=== PATIENT | male | born 1980 | race Two or more races ===

== ENCOUNTER 2017-01-30 20:22 | Emergency (ER) | payer BC ==
[2017-01-30] MEDS ORDERED: Ketorolac 60 MG/2 ML SDV IM ONE (20:55)
--- NOTE | 2017-01-30 20:55 | EDM.PDOC ---
ED HPI GENERAL MEDICAL PROBLEM - General Chief Complaint: Back Pain or Injury Stated Complaint: LT RIBCAGE PAIN Time Seen by Provider: 01/30/17 20:47 - History of Present Illness INITIAL COMMENTS - FREE TEXT/NARRATIVE: HISTORY AND PHYSICAL: History of present illness: The patient is a 36-year-old male with no stated medical problems that presents with complaints of left anterior rib pain that he's had for one week after he fell off a roof and landed on the side. With the fall he did not pass out or black out and has no head neck or back pain and no abdominal complaints or extremity complaints. He has had persistent pain at his left ribs since the fall but he has had to continue to work. He says that the pain worsens when he moves certain ways and he has been using [id number] Advil for the discomfort. He doesn't feel short of breath and has had an occassional cough and some subjective fever; he does have some intermittent nasal bleeding but he does work outside. He says that sometimes with his cough he'll get some clear phlegm and some streaks of blood but we are unsure of this is from his coughing or his nasal bleeding. He doesn't have copious nasal bleeding is scant that he has noticed. He has had no issues with eating and has been tolerating food without difficulty. Review of systems: As per history of present illness and below otherwise all systems reviewed and negative. Past medical history: As per history of present illness and as reviewed below otherwise noncontributory. Surgical history: As per history of present illness and as reviewed below otherwise noncontributory. Social history: No reported history of drug or alcohol abuse. Family history: As per history of present illness and as reviewed below otherwise noncontributory. Physical exam: General: Well-developed well-nourished man who is thin and nontoxic and moves easily in the ED. Vital signs have been noted by me. HEENT: Atraumatic, normocephalic, pupils reactive, negative for conjunctival pallor or scleral icterus, mucous membranes moist, throat clear, neck supple, nontender, trachea midline. There are no midline step-offs or defects of the cervical spine. Turbinates are boggy bilaterally oriented mucosa Lungs: Clear to auscultation, breath sounds equal bilaterally, chest wall at anterior left ribs with tenderness that is reproducible but no crepitus deformities ecchymosis or swelling. There is no work or breathing no stridor or wheezing is appreciated Heart: S1S2, regular, negative for clicks, rubs, or JVD. Abdomen: Soft, nondistended, nontender--specifically there is no left upper abdominal tenderness or fullness no rebound guarding . Negative for masses or hepatosplenomegaly. Negative for costovertebral tenderness. Pelvis: Stable nontender. No lateral hip tenderness Genitourinary: Deferred. Rectal: Deferred. Extremities: Atraumatic, negative for cords or calf pain. Neurovascular unremarkable. Full range of motion without defects or deficits Neuro: Awake, alert, oriented. Cranial nerves II through XII unremarkable. Cerebellum unremarkable. Motor and sensory unremarkable throughout. Exam nonfocal. Back: There are no midline step-offs tenderness or defects of the thoracic or lumbar spine and no posterior rib tenderness Diagnostics: Left rib x-rays with chest Therapeutics: Toradol Patient is aware of testing results and do to the cough and the runny nose we will go ahead and treat him with a Z-Tai. Advised him to continue to use Advil or Tylenol for pain and to followup in our clinic. Impression: Left chest wall pain/left rib contusion with history of blunt trauma, bronchitis Definitive disposition and diagnosis as appropriate pending reevaluation and review of above. Treatments CITRIX LEAD: Reports: NSAIDS Other Treatments CIT[employer]X LEAD: advil Left Chest Pain Score (Numeric/FACES): 9 - Related Data Allergies Allergy/AdvReac Type Severity Reaction Status Date / Time No Known Allergies Allergy Verified 03/22/15 13:25 Home Meds: Home Meds . [No Known Home Meds] 01/30/17 [History] Past Medical History - Past Health History Medical/Surgical History: Denies Medical/Surgical History Social & Family History - Tobacco Use Smoking Status *Q: Never Smoker - Alcohol Use Days Per Week of Alcohol Use: 3 Number of Drinks Per Day: 5 Total Drinks Per Week: 15 - Recreational Drug Use Recreational Drug Use: No ED ROS GENERAL - Review of Systems Review Of Systems: ROS reveals no pertinent complaints other than HPI. ED EXAM, GENERAL - Physical Exam Exam: See Below (See dictation) Course - Vital Signs Last Recorded V/S: Last Vital Signs Temp 36.9 C 01/30/17 20:39 Pulse 75 04/10/17 20:39 Resp 18 01/30/17 20:39 BP 127/80 01/30/17 20:39 Pulse Ox 97 01/30/17 20:39 - Orders/Labs/Meds Orders: Active Orders 24 hr Category Date Time Status Ribs 2V w Chest Lt [CR] Stat Exams 01/30/17 20:52 Taken Meds: Medications Discontinued Medications Generic Name Dose Route Start Last Admin Trade Name Freq PRN Reason Stop Dose Admin Ketorolac Tromethamine 60 mg 01/30/17 20:55 01/30/17 21:09 Toradol IM 01/30/17 20:56 60 mg ONETIME ONE Administration Departure - Departure Time of Disposition: 21:51 Disposition: Home, Self-Care 01 Condition: good Clinical Impression: Bronchitis Rib contusion Qualifiers: Encounter type: initial encounter Laterality: left Qualified Code(s): S20.212A - Contusion of left front wall of thorax, initial encounter Forms: ED Department Discharge Additional Instructions: The following information is given to patients seen in the emergency department who are being discharged to home. This information is to outline your options for follow-up care. We provide all patients seen in our emergency department with a follow-up referral. The need for follow-up, as well as the timing and circumstances, are variable depending upon the specifics of your emergency department visit. If you don't have a primary care physician on staff, we will provide you with a referral. We always advise you to contact your personal physician following an emergency department visit to inform them of the circumstance of the visit and for follow-up with them and/or the need for any referrals to a consulting specialist. The emergency department will also refer you to a specialist when appropriate. This referral assures that you have the opportunity for followup care with a specialist. All of these measure are taken in an effort to provide you with optimal care, which includes your followup. Under all circumstances we always encourage you to contact your private physician who remains a resource for coordinating your care. When calling for followup care, please make the office aware that this follow-up is from your recent emergency room visit. If for any reason you are refused follow-up, please contact the [facility] emergency department at and ask to speak to the emergency department charge nurse. [facility] [address] [place] [address] Continued use [id number]-mexblat Advil/Tylenol for discomfort and place ice after activities to help with pain. Please take antibiotics until they are finished for your other symptoms and please connect with one of our clinic physicians for further care and evaluation. Return to ER as needed and as discussed - My Orders Last 24 Hours: My Active Orders 01/30/17 20:52 Ribs 2V w Chest Lt [CR] Stat - Assessment/Plan Last 24 Hours: My Active Orders 01/30/17 20:52 Ribs 2V w Chest Lt [CR] Stat
[2017-01-30 22:31] VITALS: BP 123/73
--- NOTE | 2017-01-31 14:22 | CR ---
EXAM DATE: 01/30/17 PATIENT'S AGE: 36 Patient: MELVIN TAVARES Facility: [place], [place] Site . Site : 1980 Study: XRay Chest RIBS [id number]/10/2017 9:36:55 PM Ordering Physician: Leatha Lobo Final Report: INDICATION: Trauma. Patient fell. COMPARISON: none TECHNIQUE: PA chest and left ribs. FINDINGS: The lungs are clear. There is no evidence of pulmonary contusion, pneumothorax or pleural effusion. The heart and pulmonary vessels are of normal size. Oblique detail views of the ribs demonstrate no evidence of fracture or intrinsic bone lesion. There is no evidence of pleural hematoma. IMPRESSION: IMPRESSION:Negative chest and left ribs. Dictated by Fredi Bolden MD @ Jan 30 2017 9:39PM (Electronic Signature) Report Signed by Proxy and Original Signed Document filed in the Medical Record. MTDD
== END 2017-01-30 22:15 | disposition home or self-care (01) ==
LOC: MW.ED 20:22
DX: S20.212A Contusion of left front wall of thorax, initial encounter (principal); J40 Bronchitis, not specified as acute or chronic; W13.2XXA Fall from, out of or through roof, initial encounter
CPT/HCPCS: 71101; 96372; 99283; J1885

== ENCOUNTER 2017-08-25 19:53 | Emergency (ER) | payer OTHER ==
--- NOTE | 2017-08-25 20:34 | EDM.PDOC ---
ED HPI GENERAL MEDICAL PROBLEM - General Chief Complaint: Upper Extremity Injury/Pain Stated Complaint: PAIN /SWELLING LT ARM Time Seen by Provider: 08/25/17 20:26 - History of Present Illness INITIAL COMMENTS - FREE TEXT/NARRATIVE: HISTORY AND PHYSICAL: History of present illness: Patient 36-year-old male presents with a concern of left wrist pain this was an injury for 4 months prior he has had an x-ray prior to this that he reports to have been negative he has continued pain and swelling this is intermittent he denies new trauma or other concern Review of systems: As per history of present illness and below otherwise all systems reviewed and negative. Past medical history: As per history of present illness and as reviewed below otherwise noncontributory. Surgical history: As per history of present illness and as reviewed below otherwise noncontributory. Social history: No reported history of drug or alcohol abuse. Family history: As per history of present illness and as reviewed below otherwise noncontributory. Physical exam: HEENT: Atraumatic, normocephalic, pupils reactive, negative for conjunctival pallor or scleral icterus, mucous membranes moist, throat clear, neck supple, nontender, trachea midline. Lungs: Clear to auscultation, breath sounds equal bilaterally, chest nontender. Heart: S1S2, regular, negative for clicks, rubs, or JVD. Abdomen: Soft, nondistended, nontender. Negative for masses or hepatosplenomegaly. Negative for costovertebral tenderness. Pelvis: Stable nontender. Genitourinary: Deferred. Rectal: Deferred. Extremities: Moderate swelling and tenderness over the dorsal aspect of his left wrist is no point tenderness no crepitation CMS neurovascular is unremarkable Neuro: Awake, alert, oriented. Cranial nerves II through XII unremarkable. Cerebellum unremarkable. Motor and sensory unremarkable throughout. Exam nonfocal. Diagnostics: CBC uric acid ESR CRP x-ray left wrist Therapeutics: Velcro splint Impression: #1 chronic left wrist pain etiology to be determined Definitive disposition and diagnosis as appropriate pending reevaluation and review of above. Left Hand Pain Score (Numeric/FACES): 10 - Related Data Allergies Allergy/AdvReac Type Severity Reaction Status Date / Time No Known Allergies Allergy Verified 08/25/17 20:26 Home Meds: Home Meds . [No Known Home Meds] 01/30/17 [History] Past Medical History - Past Health History Medical/Surgical History: Denies Medical/Surgical History - Infectious Disease History Infectious Disease History: Reports: Chicken Pox Social & Family History - Family History Family Medical History: Noncontributory - Tobacco Use Smoking Status *Q: Never Smoker Second Hand Smoke Exposure: No - Caffeine Use Caffeine Use: Reports: Soda - Alcohol Use Days Per Week of Alcohol Use: 3 Number of Drinks Per Day: 5 Total Drinks Per Week: 15 - Recreational Drug Use Recreational Drug Use: No Review of Systems - Review of Systems Review Of Systems: ROS reveals no pertinent complaints other than HPI. ED EXAM, GENERAL - Physical Exam Exam: See Below (see dictated) Course - Vital Signs Last Recorded V/S: Last Vital Signs Temp 36.4 C 08/25/17 20:27 Pulse 70 08/25/17 20:27 Resp 18 08/25/17 20:27 BP 125/85 08/25/17 20:27 Pulse Ox 95 08/25/17 20:27 - Orders/Labs/Meds Orders: Active Orders 24 hr Category Date Time Status Wrist 2V Lt [CR] Stat Exams 08/25/17 20:29 Ordered Departure - Departure Time of Disposition: 20:33 Disposition: Home, Self-Care 01 Condition: Good Clinical Impression: Chronic wrist pain - Discharge Information Referrals: PCP,None [Primary Care Provider] - Additional Instructions: The following information is given to patients seen in the emergency department who are being discharged to home. This information is to outline your options for follow-up care. We provide all patients seen in our emergency department with a follow-up referral. The need for follow-up, as well as the timing and circumstances, are variable depending upon the specifics of your emergency department visit. If you don't have a primary care physician on staff, we will provide you with a referral. We always advise you to contact your personal physician following an emergency department visit to inform them of the circumstance of the visit and for follow-up with them and/or the need for any referrals to a consulting specialist. The emergency department will also refer you to a specialist when appropriate. This referral assures that you have the opportunity for followup care with a specialist. All of these measure are taken in an effort to provide you with optimal care, which includes your followup. Under all circumstances we always encourage you to contact your private physician who remains a resource for coordinating your care. When calling for followup care, please make the office aware that this follow-up is from your recent emergency room visit. If for any reason you are refused follow-up, please contact the [facility] emergency department at and asked to speak to the emergency department charge nurse. [facility] [address], [address] [place] [address] Follow-up orthopedic clinic called schedule routine appointment Velcro splint as discussed return as needed as discussed Motrin/Tylenol as directed - My Orders Last 24 Hours: My Active Orders 08/25/17 20:29 Wrist 2V Lt [CR] Stat - Assessment/Plan Last 24 Hours: My Active Orders 08/25/17 20:29 Wrist 2V Lt [CR] Stat
[2017-08-25 21:19] LABS: CHLORIDE,CL 112 mmol/L (98-110); SODIUM,NA 144 mmol/L (136-146)
[2017-08-25 22:28] VITALS: BP 113/71
--- NOTE | 2017-08-26 14:24 | CR ---
EXAM DATE: 08/25/17 PATIENT'S AGE: 36 Patient: MELVIN TAVARES Facility: [place], [place] Site . Site : 1980 Study: XRay Extremity wrist [id number]/3/2017 9:01:39 PM Ordering Physician: Maeve Rai Final Report: INDICATION: Hyperextension injury 4 months ago, still having pain. TECHNIQUE: Left wrist, two views COMPARISON: None FINDINGS: Bones: There is normal alignment of the osseous structures with preservation of the carpal rows. No acute fractures or aggressive bone lesions are identified. Joint spaces: The radiocarpal, carpal, and carpometacarpal joints are unremarkable in appearance. Soft tissues: Unremarkable. No radiopaque foreign bodies are noted. IMPRESSION: 1. Negative left wrist series. Dictated by Fab Myers MD @ 08/25/2017 9:17:13 PM Dictated by: Fab Myers MD @ 08/25/2017 21:17:21 (Electronic Signature) Report Signed by Proxy. [facility]
== END 2017-08-25 22:28 | disposition home or self-care (01) ==
LOC: MW.ED 19:53
DX: M25.532 Pain in left wrist (principal); G89.29 Other chronic pain
CPT/HCPCS: 36415; 73100; 80053; 84550; 85025; 85652; 86140; 99283; L3908

== ENCOUNTER 2020-05-25 08:55 | Observation (INO) | payer BC, OTHER ==
[2020-05-25] MEDS ORDERED: Sodium Chloride 0.9% 2.5 ML Syringe FLUSH PRN (09:20)
[2020-05-25] MEDS ORDERED: Sodium Chloride 0.9% 10 ML SDV IV PRN (09:20)
[2020-05-25] MEDS ORDERED: Sodium Chloride 0.9% 10 ML Syringe FLUSH PRN (09:20)
--- NOTE | 2020-05-25 09:36 | CT ---
Addendum: Voice recognition error is identified describing the date of previous head CT exam. Date of previous head CT study is 03/22/15. --- Addendum1 above dictated on [05/25/2020 08:46] by [Lawrence Nino Hilton J.] --- --- Addendum1 above signed on [05/25/2020 08:47] by [Lawrence Nino Hilton J.] --- --- Original report below dictated on [05/25/2020 08:33] by [Lawrence Nino Hilton J.] --- --- Original report below signed on [05/25/2020 08:33] by [Lawrence Nino Hilton J.] --- Head CT Technique: Multiple axial sections through the brain were obtained. Intravenous contrast was not utilized. Comparison: Prior head CT study of 03/22/50. Findings: Ventricles along with basal cisterns and sulci over the convexities are within normal limits for the patient's age. No abnormal parenchymal densities are seen. No evidence of intracranial hemorrhage. No midline shift or mass-effect is seen. Bone window settings were reviewed. Visualized paranasal sinuses and mastoid sinuses show nothing acute. No acute calvarial finding is seen. Impression: 1. Nothing acute is identified on noncontrast head CT study. 2. No change from previous study is seen. Diagnostic code #1 This report was dictated in MDT --- Addendum1 signed ---
--- NOTE | 2020-05-25 09:47 | CR ---
Chest: Portable view of the chest was obtained. Comparison: No prior chest imaging is available. Heart size and mediastinum are normal. Lungs are clear with no acute parenchymal change. Bony structures are unremarkable. Impression: 1. Nothing acute is seen on portable chest x-ray. Diagnostic code #1 This report was dictated in MDT
[2020-05-25 09:51] LABS: BLOOD UREA NITROGEN,BUN 16 mg/dL (7.0-18.0); CARBON DIOXIDE,CO2 26.5 mmol/L (21.0-32.0); CHLORIDE,CL 105 mmol/L (98-107); GLUCOSE RANDOM 92 mg/dL (74-106); POTASSIUM,K 3.6 mmol/L (3.5-5.1); SODIUM,NA 141 mmol/L (136-148)
[2020-05-25] MEDS ORDERED: Aspirin 81 MG Tab.Chew PO ONE (10:37)
--- NOTE | 2020-05-25 10:44 | EDM.PDOC ---
ED HPI GENERAL MEDICAL PROBLEM - General Chief Complaint: Neuro Symptoms/Deficits Stated Complaint: CHEST PAIN, NUMBNESS LT SIDE Time Seen by Provider: 05/25/20 09:19 - History of Present Illness INITIAL COMMENTS - FREE TEXT/NARRATIVE: History of present illness: Patient presents with left-sided weakness and numbness. 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 Patient states that on Monday he had some numbness and weakness in the left side that lasted several hours and it went away Monday he had no symptoms Monday he had some symptoms that lasted several hours and went away and this morning he had symptoms since 3 AM he says he feels dizzy which is difficult to determine exactly what the quality of the dizziness is and he says his mouth feels strange when he tries to speak it is numb on the left side and his entire left upper and lower extremities are numb and feel slightly weak. He denies any prior strokes no other medical problems no medications no head injuries he has not had any difficulty speaking the episodes seem to come and go and he has never had anything like this happen to him before. There is been no other symptoms of cough congestion fever no headache no head injury no chest pain no trouble breathing. Review of systems: As per history of present illness and below otherwise all systems reviewed and negative. Past medical history: As per history of present illness and as reviewed below otherwise noncontributory. Surgical history: As per history of present illness and as reviewed below otherwise noncontributory. Social history: No reported history of drug or alcohol abuse. Family history: As per history of present illness and as reviewed below otherwise noncontributory. Physical exam: HEENT: Atraumatic, normocephalic, pupils reactive, negative for conjunctival pallor or scleral icterus, mucous membranes moist, throat clear, neck supple, nontender, trachea midline. Lungs: Clear to auscultation, breath sounds equal bilaterally, chest nontender. Heart: S1S2, regular, negative for clicks, rubs, or JVD. Abdomen: Soft, nondistended, nontender. Negative for masses or hepatosplenomegaly. Negative for costovertebral tenderness. Pelvis: Stable nontender. Genitourinary: Deferred. Rectal: Deferred. Extremities: Atraumatic, negative for cords or calf pain. Neurovascular unremarkable. Neuro: Awake, alert, oriented. Cranial nerves II through XII unremarkable. Cerebellum unremarkable. The chief contract officer strength on left side is 4 out of 5 right side 5 out of 5 throughout. There is a very mild pronator drift on the left in the patient states he is having trouble with his speech although due to the language barrier I am not noticing any specific slurring. Diagnostics: [] Therapeutics: [] Impression: Mild CVA with symptoms greater than 6 hours. Patient will be evaluated and admitted he is not going to be a TPA candidate due to the onset of symptoms [] Plan: [] Definitive disposition and diagnosis as appropriate pending reevaluation and review of above. - Related Data Allergies Allergy/AdvReac Type Severity Reaction Status Date / Time No Known Allergies Allergy Verified 05/25/20 09:25 Home Meds: Home Meds . [No Known Home Meds] 01/30/17 [History] Past Medical History - Past Health History Medical/Surgical History: Denies Medical/Surgical History - Infectious Disease History Infectious Disease History: Reports: Chicken Pox Social & Family History - Family History Family Medical History: Noncontributory - Tobacco Use Smoking Status *Q: Never Smoker - Caffeine Use Caffeine Use: Reports: Soda - Recreational Drug Use Recreational Drug Use: No ED ROS GENERAL - Review of Systems Review Of Systems: See Below ED EXAM, GENERAL - Physical Exam Exam: See Below EKG INTERPRETATION EKG Interpretation Comments: EKG is normal sinus rhythm with a rate of [address]-T changes no casi ischemia read and interpreted by me Course - Vital Signs Text/Narrative:: One-view portable chest read interpreted by me no acute cardiopulmonary pathology is evident CT brain read by radiology is unremarkable. I discussed case Dr. Lyle at 10:40 AM he will accept the patient to [facility] for CVA. Last Recorded V/S: Last Vital Signs Temp 35.3 C L 05/25/20 09:00 Pulse 58 L 05/25/20 09:00 Resp 16 05/25/20 09:00 BP 135/77 05/25/20 09:00 Pulse Ox 99 05/25/20 09:00 - Orders/Labs/Meds Orders: Active Orders 24 hr Category Date Time Status Assess Neurological Status [RC] ASDIRECTED Care 05/25/20 09:20 Active Bedrest [RC] ASDIRECTED Care 05/25/20 09:20 Active Cardiac Monitoring [RC] . DIRECTED Care 05/25/20 09:20 Active EKG Documentation Completion [RC] STAT Care 05/25/20 09:20 Active Height and Weight [] UPON Care 05/25/20 09:20 Active Initiate Acute Stroke Protocol [] STAT Care 05/25/20 09:20 Active NIH Stroke Scale [RC] ASDIRECTED Care 05/25/20 09:20 Active Nursing Bedside Swallow Screen [] ASDIRECTED Care 05/25/20 09:20 Active Oxygen Therapy [RC] ASDIRECTED Care 05/25/20 09:20 Active Stroke Education, General [] Click to Edit Care 05/25/20 09:20 Active Vital Signs [] Q15M Care 05/25/20 09:20 Active Sodium Chloride 0.9% [Normal Saline] Med 05/25/20 09:20 Active 10 ml IV ASDIRECTED PRN Sodium Chloride 0.9% [Saline Flush] Med 05/25/20 09:20 Active 10 ml FLUSH ASDIRECTED PRN Sodium Chloride 0.9% [Saline Flush] Med 05/25/20 09:20 Active 2.5 ml FLUSH ASDIRECTED PRN Peripheral IV Insertion Adult [OM.PC] Stat Oth 05/25/20 09:20 Ordered Peripheral IV Insertion Adult [OM.PC] Stat Oth 05/25/20 09:20 Ordered Resuscitation Status Stat Resus Stat 05/25/20 09:20 Ordered Medication Orders Sodium Chloride (Saline Flush) 10 ml FLUSH ASDIRECTED PRN PRN Reason: Keep Vein Open Sodium Chloride (Saline Flush) 2.5 ml FLUSH ASDIRECTED PRN PRN Reason: Keep Vein Open Sodium Chloride (Normal Saline) 10 ml IV ASDIRECTED PRN PRN Reason: IV Use Labs: Laboratory Tests 05/25/20 05/25/20 05/25/20 Range/Units 09:00 09:00 09:00 WBC 6.16 (4.0-11.0) K/uL RBC 4.90 (4.50-5.90) M/uL Hgb 14.9 (13.0-17.0) g/dL Hct 45.2 (38.0-50.0) % MCV 92.2 (80.0-98.0) fL MCH 30.4 (27.0-32.0) pg MCHC 33.0 (31.0-37.0) g/dL RDW Std Deviation 46.1 (28.0-62.0) fl RDW Coeff of Juan 14 (11.0-15.0) % Plt Count 286 (150-400) K/uL MPV 9.80 (7.40-12.00) fL Neut % (Auto) 59.5 (48.0-80.0) % Lymph % (Auto) 30.8 (16.0-40.0) % [place] % (Auto) 5.8 (0.0-15.0) % Eos % (Auto) 3.7 (0.0-7.0) % Baso % (Auto) 0.2 (0.0-1.5) % Neut # (Auto) 3.7 (1.4-5.7) K/uL Lymph # (Auto) 1.9 (0.6-2.4) K/uL [place] # (Auto) 0.4 (0.0-0.8) K/uL Eos # (Auto) 0.2 (0.0-0.7) K/uL Baso # (Auto) 0.0 (0.0-0.1) K/uL Nucleated RBC % 0.0 /100WBC Nucleated RBCs # 0 K/uL INR 1.01 APTT 29.2 (18.6-31.3) SEC Sodium 141 (136-148) mmol/L Potassium 3.6 (3.5-5.1) mmol/L Chloride 105 (98-107) mmol/L Carbon Dioxide 26.5 (21.0-32.0) mmol/L BUN 16 (7.0-18.0) mg/dL Creatinine 0.9 (0.8-1.3) mg/dL Est Cr Clr Drug Dosing 112.38 mL/min Estimated GFR (MDRD) > 60.0 ml/min Glucose 92 (74-106) mg/dL POC Glucose (60-110) mg/dL Calcium 8.4 L (8.5-10.1) mg/dL Total Bilirubin 0.3 (0.2-1.0) mg/dL AST 24 (15-37) IU/L ALT 35 (14-63) IU/L Alkaline Phosphatase 110 (46-116) U/L Troponin I < 0.050 (0.000-0.056) ng/mL Total Protein 8.4 H (6.4-8.2) g/dL Albumin 4.1 (3.4-5.0) g/dL Globulin 4.3 H (2.6-4.0) g/dL Albumin/Globulin Ratio 1.0 (0.9-1.6) TSH 3rd Generation 0.98 (0.36-3.74) uIU/mL 05/25/20 Range/Units 09:11 WBC (4.0-11.0) K/uL RBC (4.50-5.90) M/uL Hgb (13.0-17.0) g/dL Hct (38.0-50.0) % MCV (80.0-98.0) fL MCH (27.0-32.0) pg MCHC (31.0-37.0) g/dL RDW Std Deviation (28.0-62.0) fl RDW Coeff of Juan (11.0-15.0) % Plt Count (150-400) K/uL MPV (7.40-12.00) fL Neut % (Auto) (48.0-80.0) % Lymph % (Auto) (16.0-40.0) % [place] % (Auto) (0.0-15.0) % Eos % (Auto) (0.0-7.0) % Baso % (Auto) (0.0-1.5) % Neut # (Auto) (1.4-5.7) K/uL Lymph # (Auto) (0.6-2.4) K/uL [place] # (Auto) (0.0-0.8) K/uL Eos # (Auto) (0.0-0.7) K/uL Baso # (Auto) (0.0-0.1) K/uL Nucleated RBC % /100WBC Nucleated RBCs # K/uL INR APTT (18.6-31.3) SEC Sodium (136-148) mmol/L Potassium (3.5-5.1) mmol/L Chloride (98-107) mmol/L Carbon Dioxide (21.0-32.0) mmol/L BUN (7.0-18.0) mg/dL Creatinine (0.8-1.3) mg/dL Est Cr Clr Drug Dosing mL/min Estimated GFR (MDRD) ml/min Glucose (74-106) mg/dL POC Glucose 86 (60-110) mg/dL Calcium (8.5-10.1) mg/dL Total Bilirubin (0.2-1.0) mg/dL AST (15-37) IU/L ALT (14-63) IU/L Alkaline Phosphatase (46-116) U/L Troponin I (0.000-0.056) ng/mL Total Protein (6.4-8.2) g/dL Albumin (3.4-5.0) g/dL Globulin (2.6-4.0) g/dL Albumin/Globulin Ratio (0.9-1.6) TSH 3rd Generation (0.36-3.74) uIU/mL Meds: Medications Generic Name Dose Route Start Last Admin Trade Name Freq PRN Reason Stop Dose Admin Sodium Chloride 10 ml 05/25/20 09:20 Saline Flush FLUSH ASDIRECTED PRN Keep Vein Open Sodium Chloride 2.5 ml 05/25/20 09:20 Saline Flush FLUSH ASDIRECTED PRN Keep Vein Open Sodium Chloride 10 ml 05/25/20 09:20 Normal Saline IV ASDIRECTED PRN IV Use Discontinued Medications Generic Name Dose Route Start Last Admin Trade Name Freq PRN Reason Stop Dose Admin Aspirin 324 mg 05/25/20 10:37 Aspirin PO 05/25/20 10:38 ONETIME ONE Departure - Departure Time of Disposition: 10:35 Disposition: Refer to Observation Condition: Good Clinical Impression: CVA (cerebral vascular accident) - Discharge Information *PRESCRIPTION DRUG MONITORING PROGRAM REVIEWED*: Not Applicable *COPY OF PRESCRIPTION DRUG MONITORING REPORT IN PATIENT NICK: Not Applicable Referrals: PCP,None [Primary Care Provider] - Sepsis Event Note (ED) - Evaluation Sepsis Screening Result: No Definite Risk - Focused Exam Vital Signs: Vital Signs Temp Pulse Resp BP Pulse Ox 05/25/20 09:00 35.3 C L 58 L 16 135/77 99 - My Orders Last 24 Hours: My Active Orders 05/25/20 09:20 Assess Neurological Status [RC] ASDIRECTED Bedrest [RC] ASDIRECTED Cardiac Monitoring [RC] . DIRECTED EKG Documentation Completion [RC] STAT Height and Weight [RC] UPON Initiate Acute Stroke Protocol [RC] STAT NIH Stroke Scale [RC] ASDIRECTED Nursing Bedside Swallow Screen [RC] ASDIRECTED Oxygen Therapy [RC] ASDIRECTED Stroke Education, General [RC] Click to Edit Vital Signs [RC] Q15M Sodium Chloride 0.9% [Normal Saline] 10 ml IV ASDIRECTED PRN Sodium Chloride 0.9% [Saline Flush] 10 ml FLUSH ASDIRECTED PRN Sodium Chloride 0.9% [Saline Flush] 2.5 ml FLUSH ASDIRECTED PRN Peripheral IV Insertion Adult [OM.PC] Stat Peripheral IV Insertion Adult [OM.PC] Stat Resuscitation Status Stat - Assessment/Plan Last 24 Hours: My Active Orders 05/25/20 09:20 Assess Neurological Status [RC] ASDIRECTED Bedrest [RC] ASDIRECTED Cardiac Monitoring [RC] . DIRECTED EKG Documentation Completion [RC] STAT Height and Weight [RC] UPON Initiate Acute Stroke Protocol [RC] STAT NIH Stroke Scale [RC] ASDIRECTED Nursing Bedside Swallow Screen [RC] ASDIRECTED Oxygen Therapy [RC] ASDIRECTED Stroke Education, General [RC] Click to Edit Vital Signs [RC] Q15M Sodium Chloride 0.9% [Normal Saline] 10 ml IV ASDIRECTED PRN Sodium Chloride 0.9% [Saline Flush] 10 ml FLUSH ASDIRECTED PRN Sodium Chloride 0.9% [Saline Flush] 2.5 ml FLUSH ASDIRECTED PRN Peripheral IV Insertion Adult [OM.PC] Stat Peripheral IV Insertion Adult [OM.PC] Stat Resuscitation Status Stat
[2020-05-25 11:42] LABS: HEMOGLOBIN A1C 5.5 % (4.5-6.2)
[2020-05-25] MEDS ORDERED: Ondansetron 4 MG Tab.DIS PO PRN (12:13)
[2020-05-25] MEDS ORDERED: Acetaminophen 325 MG Tab PO PRN (12:13)
[2020-05-25] MEDS ORDERED: Ondansetron 4 MG/2 ML SDV IVPUSH PRN (12:13)
[2020-05-25] MEDS ORDERED: Sodium Chloride 0.9% 1,000 ML IV ONE (12:18)
--- NOTE | 2020-05-25 12:25 | PCM.HP.2 ---
H&P History of Present Illness - General Date of Service: 05/25/20 Admit Problem/Dx: Admission Diagnosis/Problem Admission Diagnosis/Problem CVA, Cerebrovascular accident Source of Information: Patient History Limitations: Reports: No Limitations, Other (angiographer used) - History of Present Illness Initial Comments - Free Text/Narative: 39-year-old male presented with left face numbness and left upper and lower extremity numbness and weakness. He reports no significant past medical history. The symptoms first started 3 days ago and lasted for only 1 hour. The symptoms then recurred the next day but only lasted 1 hour. The symptoms started again last night at around 10 PM and have persisted since then. He denies any speech difficulty but notes that his left lip feels a bit numb. He reports feeling fatigued and lightheaded. He denies any fevers, chills, blurry vision, sore throat, SOB, chest pain, nausea, vomiting, abdominal pain, diarrhea, blood in stool or blood in urine. Denies any history of stroke, heart attack of blood clot disorders. He denies any tobacco or illicit drug use. Drinks 1 beer every other day. In the ER, patient given aspirin 325 mg, EKG showed no acute ischemic changes, CXR negative, CT head negative and COVID19 test negative. CBC and CMP unremarkable. Troponin was negative. Patient admitted for further evaluation and treatment. - Related Data Allergies/Adverse Reactions: Allergies Allergy/AdvReac Type Severity Reaction Status Date / Time No Known Allergies Allergy Verified 05/25/20 12:06 Home Medications: Home Meds . [No Known Home Meds] 01/30/17 [History] Past Medical History - Past Health History Medical/Surgical History: Denies Medical/Surgical History - Infectious Disease History Infectious Disease History: Reports: Chicken Pox Social & Family History - Family History Family Medical History: Noncontributory - Tobacco Use Smoking Status *Q: Never Smoker - Caffeine Use Caffeine Use: Reports: Soda - Recreational Drug Use Recreational Drug Use: No H&P Review of Systems - Review of Systems: Review Of Systems: Comprehensive ROS is negative, except as noted in HPI. Exam - Exam Exam: See Below - Vital Signs Vital Signs: Last Vital Signs Temp 36.6 C 05/25/20 11:50 Pulse 54 L 05/25/20 11:50 Resp 17 05/25/20 11:50 BP 116/76 05/25/20 11:50 Pulse Ox 100 05/25/20 11:50 Weight: 80.739 kg - Exam General: Alert, Oriented, Cooperative HEENT: Conjunctiva Clear, EOMI, Hearing Intact, Posterior Pharynx Clear, Pupils Equal, Pupils Reactive Neck: Supple, Trachea Midline Lungs: Clear to Auscultation, Normal Respiratory Effort Cardiovascular: Regular Rate, Regular Rhythm GI/Abdominal Exam: Normal Bowel Sounds, Soft, Non-Tender, No Distention Extremities: Normal Inspection, No Pedal Edema Peripheral Pulses: 2+: Radial (L), Radial (R) Skin: Warm, Dry, Intact Neurological: Cranial Nerves Intact, Normal Speech, Normal Tone, Other (4/5 strength in LUE. 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 5/5 strength in all other extremities. No pronator drift appreciated.) Neuro Extensive - Mental Status: Alert, Oriented x3, Normal Mood/Affect Psychiatric: Alert, Normal Affect, Normal Mood - Patient Data Lab Results Last 24 hrs: Laboratory Results - last 24 hr 05/25/20 05/25/20 05/25/20 Range/Units 09:00 09:00 09:00 WBC 6.16 (4.0-11.0) K/uL RBC 4.90 (4.50-5.90) M/uL Hgb 14.9 (13.0-17.0) g/dL Hct 45.2 (38.0-50.0) % MCV 92.2 (80.0-98.0) fL MCH 30.4 (27.0-32.0) pg MCHC 33.0 (31.0-37.0) g/dL RDW Std Deviation 46.1 (28.0-62.0) fl RDW Coeff of Juan 14 (11.0-15.0) % Plt Count 286 (150-400) K/uL MPV 9.80 (7.40-12.00) fL Neut % (Auto) 59.5 (48.0-80.0) % Lymph % (Auto) 30.8 (16.0-40.0) % [place] % (Auto) 5.8 (0.0-15.0) % Eos % (Auto) 3.7 (0.0-7.0) % Baso % (Auto) 0.2 (0.0-1.5) % Neut # (Auto) 3.7 (1.4-5.7) K/uL Lymph # (Auto) 1.9 (0.6-2.4) K/uL [place] # (Auto) 0.4 (0.0-0.8) K/uL Eos # (Auto) 0.2 (0.0-0.7) K/uL Baso # (Auto) 0.0 (0.0-0.1) K/uL Nucleated RBC % 0.0 /100WBC Nucleated RBCs # 0 K/uL INR 1.01 APTT 29.2 (18.6-31.3) SEC Sodium 141 (136-148) mmol/L Potassium 3.6 (3.5-5.1) mmol/L Chloride 105 (98-107) mmol/L Carbon Dioxide 26.5 (21.0-32.0) mmol/L BUN 16 (7.0-18.0) mg/dL Creatinine 0.9 (0.8-1.3) mg/dL Est Cr Clr Drug Dosing 112.38 mL/min Estimated GFR (MDRD) > 60.0 ml/min Glucose 92 (74-106) mg/dL POC Glucose (60-110) mg/dL Hemoglobin A1c (4.5-6.2) % Calcium 8.4 L (8.5-10.1) mg/dL Total Bilirubin 0.3 (0.2-1.0) mg/dL AST 24 (15-37) IU/L ALT 35 (14-63) IU/L Alkaline Phosphatase 110 (46-116) U/L Troponin I < 0.050 (0.000-0.056) ng/mL Total Protein 8.4 H (6.4-8.2) g/dL Albumin 4.1 (3.4-5.0) g/dL Globulin 4.3 H (2.6-4.0) g/dL Albumin/Globulin Ratio 1.0 (0.9-1.6) Triglycerides (0-200) mg/dL Cholesterol (50-200) mg/dL LDL Cholesterol, Calc (60-180) mg/dL VLDL Cholesterol (5-55) mg/dL HDL Cholesterol (40-60) mg/dL Cholesterol/HDL Ratio (3.3-6.0) TSH 3rd Generation 0.98 (0.36-3.74) uIU/mL COVID-19 (PATTI) (NEGATIVE) 05/25/20 05/25/20 05/25/20 Range/Units 09:00 09:00 09:11 WBC (4.0-11.0) K/uL RBC (4.50-5.90) M/uL Hgb (13.0-17.0) g/dL Hct (38.0-50.0) % MCV (80.0-98.0) fL MCH (27.0-32.0) pg MCHC (31.0-37.0) g/dL RDW Std Deviation (28.0-62.0) fl RDW Coeff of Juan (11.0-15.0) % Plt Count (150-400) K/uL MPV (7.40-12.00) fL Neut % (Auto) (48.0-80.0) % Lymph % (Auto) (16.0-40.0) % [place] % (Auto) (0.0-15.0) % Eos % (Auto) (0.0-7.0) % Baso % (Auto) (0.0-1.5) % Neut # (Auto) (1.4-5.7) K/uL Lymph # (Auto) (0.6-2.4) K/uL [place] # (Auto) (0.0-0.8) K/uL Eos # (Auto) (0.0-0.7) K/uL Baso # (Auto) (0.0-0.1) K/uL Nucleated RBC % /100WBC Nucleated RBCs # K/uL INR APTT (18.6-31.3) SEC Sodium (136-148) mmol/L Potassium (3.5-5.1) mmol/L Chloride (98-107) mmol/L Carbon Dioxide (21.0-32.0) mmol/L BUN (7.0-18.0) mg/dL Creatinine (0.8-1.3) mg/dL Est Cr Clr Drug Dosing mL/min Estimated GFR (MDRD) ml/min Glucose (74-106) mg/dL POC Glucose 86 (60-110) mg/dL Hemoglobin A1c 5.5 (4.5-6.2) % Calcium (8.5-10.1) mg/dL Total Bilirubin (0.2-1.0) mg/dL AST (15-37) IU/L ALT (14-63) IU/L Alkaline Phosphatase (46-116) U/L Troponin I (0.000-0.056) ng/mL Total Protein (6.4-8.2) g/dL Albumin (3.4-5.0) g/dL Globulin (2.6-4.0) g/dL Albumin/Globulin Ratio (0.9-1.6) Triglycerides 42 (0-200) mg/dL Cholesterol 134 (50-200) mg/dL LDL Cholesterol, Calc 65 (60-180) mg/dL VLDL Cholesterol 8 (5-55) mg/dL HDL Cholesterol 61 H (40-60) mg/dL Cholesterol/HDL Ratio 2.2 L (3.3-6.0) TSH 3rd Generation (0.36-3.74) uIU/mL COVID-19 (PATTI) (NEGATIVE) 05/25/20 Range/Units 10:50 WBC (4.0-11.0) K/uL RBC (4.50-5.90) M/uL Hgb (13.0-17.0) g/dL Hct (38.0-50.0) % MCV (80.0-98.0) fL MCH (27.0-32.0) pg MCHC (31.0-37.0) g/dL RDW Std Deviation (28.0-62.0) fl RDW Coeff of Juan (11.0-15.0) % Plt Count (150-400) K/uL MPV (7.40-12.00) fL Neut % (Auto) (48.0-80.0) % Lymph % (Auto) (16.0-40.0) % [place] % (Auto) (0.0-15.0) % Eos % (Auto) (0.0-7.0) % Baso % (Auto) (0.0-1.5) % Neut # (Auto) (1.4-5.7) K/uL Lymph # (Auto) (0.6-2.4) K/uL [place] # (Auto) (0.0-0.8) K/uL Eos # (Auto) (0.0-0.7) K/uL Baso # (Auto) (0.0-0.1) K/uL Nucleated RBC % /100WBC Nucleated RBCs # K/uL INR APTT (18.6-31.3) SEC Sodium (136-148) mmol/L Potassium (3.5-5.1) mmol/L Chloride (98-107) mmol/L Carbon Dioxide (21.0-32.0) mmol/L BUN (7.0-18.0) mg/dL Creatinine (0.8-1.3) mg/dL Est Cr Clr Drug Dosing mL/min Estimated GFR (MDRD) ml/min Glucose (74-106) mg/dL POC Glucose (60-110) mg/dL Hemoglobin A1c (4.5-6.2) % Calcium (8.5-10.1) mg/dL Total Bilirubin (0.2-1.0) mg/dL AST (15-37) IU/L ALT (14-63) IU/L Alkaline Phosphatase (46-116) U/L Troponin I (0.000-0.056) ng/mL Total Protein (6.4-8.2) g/dL Albumin (3.4-5.0) g/dL Globulin (2.6-4.0) g/dL Albumin/Globulin Ratio (0.9-1.6) Triglycerides (0-200) mg/dL Cholesterol (50-200) mg/dL LDL Cholesterol, Calc (60-180) mg/dL VLDL Cholesterol (5-55) mg/dL HDL Cholesterol (40-60) mg/dL Cholesterol/HDL Ratio (3.3-6.0) TSH 3rd Generation (0.36-3.74) uIU/mL COVID-19 (PATTI) NEGATIVE (NEGATIVE) Result Diagrams: 05/25/20 09:00 05/25/20 09:00 Sepsis Event Note - Evaluation Sepsis Screening Result: No Definite Risk - Focused Exam Vital Signs: Vital Signs Temp Pulse Resp BP Pulse Ox 05/25/20 11:50 36.6 C 54 L 17 116/76 100 05/25/20 11:27 53 L 117/66 99 05/25/20 11:11 51 L 114/72 98 05/25/20 10:41 55 L 112/69 100 05/25/20 10:11 61 113/69 97 05/25/20 09:58 58 L 82/48 L 98 05/25/20 09:00 35.3 C L 58 L 16 135/77 99 Date Exam was Performed: 05/25/20 Time Exam was Performed: 12:19 Problem List Initiated/Reviewed/Updated: Yes Orders Last 24hrs: Active Orders 24 hr Category Date Time Status Patient Status [ADT] Routine ADT 05/25/20 10:46 Active Initiate Acute Stroke Protocol [RC] STAT Care 05/25/20 09:20 Active NIH Stroke Scale [RC] ASDIRECTED Care 05/25/20 09:20 Active Neuro Check [RC] Q4H Care 05/25/20 12:16 Ordered Oxygen Therapy [RC] ASDIRECTED Care 05/25/20 09:20 Active Oxygen Therapy [RC] PRN Care 05/25/20 12:14 Active Stroke Education, General [RC] Click to Edit Care 05/25/20 09:20 Active Swallow Screen [Nursing Bedside Swallow Screen] [RC] Care 05/25/20 12:16 Ordered ASDIRECTED Telemetry Monitoring [Cardiac Monitoring] [RC] . Care 05/25/20 11:04 Active DIRECTED Up ad Arlyn [RC] ASDIRECTED Care 05/25/20 12:13 Active VTE/DVT Education [RC] PER UNIT ROUTINE Care 05/25/20 12:14 Active Vital Signs [RC] Q4H Care 05/25/20 12:14 Active PT Evaluation and Treatment [CONS] Routine Cons 05/25/20 12:13 Active Regular Diet [DIET] Diet 05/25/20 Lunch Active Brain w wo Cont [MR] Stat Exams 05/25/20 10:42 Ordered Echo Comp wo Cont [US] Urgent Exams 05/25/20 12:15 Ordered MRA Neck Without Contrast [Ang Neck wo Cont] [MR] Stat Exams 05/25/20 10:42 Ordered CBC WITH AUTO DIFF [HEME] AM Lab 05/26/20 05:11 Ordered COMPREHENSIVE METABOLIC PN,CMP [CHEM] AM Lab 05/26/20 05:11 Ordered Acetaminophen [Tylenol] Med 05/25/20 12:13 Ordered 650 mg PO Q4H PRN Aspirin Med 05/26/20 09:00 Ordered 81 mg PO DAILY Heparin Sodium Med 05/25/20 12:15 Ordered 5,000 units SUBCUT Q8H Ondansetron [Zofran ODT] Med 05/25/20 12:13 Ordered 4 mg PO Q4H PRN Ondansetron [Zofran] Med 05/25/20 12:13 Ordered 4 mg IVPUSH Q4H PRN Sodium Chloride 0.9% [Normal Saline] Med 05/25/20 09:20 Active 10 ml IV ASDIRECTED PRN Sodium Chloride 0.9% [Normal Saline] 1,000 ml Med 05/25/20 12:18 Ordered IV STAT Sodium Chloride 0.9% [Saline Flush] Med 05/25/20 09:20 Active 10 ml FLUSH ASDIRECTED PRN Sodium Chloride 0.9% [Saline Flush] Med 05/25/20 09:20 Active 2.5 ml FLUSH ASDIRECTED PRN atorvaSTATin [Lipitor] Med 05/25/20 21:00 Ordered 40 mg PO BEDTIME Peripheral IV Insertion Adult [OM.PC] Stat Oth 05/25/20 09:20 Ordered Peripheral IV Insertion Adult [OM.PC] Stat Oth 05/25/20 09:20 Ordered Resuscitation Status Stat Resus Stat 05/25/20 09:20 Ordered Medication Orders Acetaminophen (Tylenol) 650 mg PO Q4H PRN PRN Reason: Pain (Mild 1-3)/fever Aspirin (Aspirin) 81 mg PO DAILY ALY Atorvastatin Calcium (Lipitor) 40 mg PO BEDTIME ALY Heparin Sodium (Porcine) (Heparin Sodium) 5,000 units SUBCUT Q8H ALY Sodium Chloride (Normal Saline) 1,000 mls @ 120 mls/hr IV STAT ONE Stop: 05/25/20 20:37 Ondansetron HCl (Zofran) 4 mg IVPUSH Q4H PRN PRN Reason: Nausea Ondansetron HCl (Zofran Odt) 4 mg PO Q4H PRN PRN Reason: nausea, able to take PO Sodium Chloride (Saline Flush) 10 ml FLUSH ASDIRECTED PRN PRN Reason: Keep Vein Open Sodium Chloride (Saline Flush) 2.5 ml FLUSH ASDIRECTED PRN PRN Reason: Keep Vein Open Sodium Chloride (Normal Saline) 10 ml IV ASDIRECTED PRN PRN Reason: IV Use Assessment/Plan Comment:: Assessment and Plan: 1. Ischemic stroke: - Admit to med/surg. Patient on telemetry. Since onset of symptoms was > 6h ago patient not a candidate for TPA. Patient reports that his left arm/leg weakness and numbness have improved a bit since coming to the hospital. CT head was negative. Will order MRI brain, MRA neck and ECHO. Will start aspirin 81 mg qd and statin. Will check lipid panel and HgbA1C. Will order neuro-checks q4h, bedside swallow evaluation and PT consult. 2. DVT prophylaxis: heparin.
[2020-05-25] MEDS: Heparin Sodium 5,000 Units/ML Vial SUBCUT SCH ×2 (12:30→21:32)
[2020-05-25] MEDS ORDERED: Gadobenate Dimeglumine 529 MG/ML 20 ML SDV IVPUSH STA (12:33)
--- NOTE | 2020-05-25 14:24 | MR ---
MRI angiogram of neck Technique: MR angiogram of the neck was obtained without IV contrast. This limits evaluation of the study. Findings: Distal common carotid arteries, carotid bulb and proximal internal carotid arteries appear patent without focal stenosis. Distal vertebral arteries appear to be patent. Artifact is noted within the transverse portions of the vertebral arteries and further comment cannot be made. Impression: 1. Limited MRI angiogram of the neck shows no gross abnormality. If better evaluation is clinically needed, contrast study is then recommended. Diagnostic code #2 This report was dictated in MDT
--- NOTE | 2020-05-25 14:28 | MR ---
MRI brain (without and with intravenous contrast) Technique: T1 sagittal and coronal; T1, T2, FLAIR and diffusion axial; postcontrast T1 axial, coronal and sagittal images were obtained. Comparison: No previous intracranial imaging. Findings: No acute diffusion abnormalities are seen. Ventricles along with basal cisterns and sulci over the convexities are within normal limits for the patient's age. Visualized paranasal sinuses are clear. Normal signal void is seen within the major cerebral arteries within the skull base. No abnormal signal is seen within the brain parenchyma. No midline shift or mass-effect is appreciated. No abnormal enhancement is seen within the brain parenchyma. Impression: 1. No abnormality is appreciated on MRI study of the brain. There is specifically no acute diffusion abnormalities being seen. Diagnostic code #1 This report was dictated in MDT
[2020-05-25] MEDS ORDERED: atorvaSTATin 40 MG Tab PO SCH (21:00)
[2020-05-26] MEDS: Heparin Sodium 5,000 Units/ML Vial SUBCUT SCH (05:24)
[2020-05-26 05:51] LABS: BLOOD UREA NITROGEN,BUN 9 mg/dL (7.0-18.0); CARBON DIOXIDE,CO2 29.1 mmol/L (21.0-32.0); CHLORIDE,CL 105 mmol/L (98-107); GLUCOSE RANDOM 90 mg/dL (74-106); SODIUM,NA 140 mmol/L (136-148)
[2020-05-26] MEDS ORDERED: Aspirin 81 MG Tab.Chew PO SCH (09:00)
--- NOTE | 2020-05-26 11:56 | PCM.DCSUM1 ---
<Seferino Singh M - Last Filed: 05/26/20 18:36> Discharge Summary - Hospital Course Free Text/Narrative:: 39-year-old male admitted for TIA. He has no significant past medical history. On day of admission, patient reported left facial numbness, mild speech difficulty, left arm weakness and numbness as well as left leg weakness and numbness. Patient was not a candidate for TPA as symptoms onset was > 6 h prior to ER presentation. CT head was negative. MRI brain and MRA neck were unremark able. CXR negative. COVID19 test negative. ECHO ordered and is currently pending at time of discharge. Patient started on aspirin and statin. On morning of discharge, patient noted complete resolution of his symptoms. Patient evaluated by PT prior to discharge. He was discharged in stable condition and advised to follow-up with PCP. Neurology referral appointment was also made. - Discharge Data Discharge Date: 05/26/20 Discharge Disposition: Home, Self-Care 01 Condition: Stable - Referral to Home Health Primary Care Physician: PCP None - Patient Summary/Data Consults: Consultations 05/25/20 12:13 PT Evaluation and Treatment [CONS] Routine - Patient Instructions Diet: Usual Diet as Tolerated Activity: As Tolerated Notify Provider of: Fever, Increased Pain, Swelling and Redness, Drainage, Nausea and/or Vomiting - Discharge Plan *PRESCRIPTION DRUG MONITORING PROGRAM REVIEWED*: Not Applicable *COPY OF PRESCRIPTION DRUG MONITORING REPORT IN PATIENT NICK: Not Applicable Prescriptions/Med Rec: Aspirin 81 mg PO DAILY 30 Days #30 tab.chew atorvaSTATin [Lipitor] 40 mg PO BEDTIME 30 Days #30 tablet Home Medications: Home Meds Aspirin 81 mg PO DAILY 30 Days #30 tab.chew 05/26/20 [Rx] atorvaSTATin [Lipitor] 40 mg PO BEDTIME 30 Days #30 tablet 05/26/20 [Rx] Oxygen Therapy Mode: Room Air Patient Handouts: Stroke Prevention, [id number], Transient Ischemic Attack, [id number], Warning Signs of a Stroke, Aspirin and Your Heart, Atorvastatin tablets Referrals: Oliva Monahan MD [Physician] - 07/07/20 9:00 am (Please arrive 15 minutes early; the neurology clinic has recieved information regarding your hospitalization. ) Nikki Sanchez PA [Physician [employer] Hatcher[employer] Supervisor] - 05/28/20 10:30 am (Please arrive 15 minutes early with your identification, insurance cards, discharge paperwork and your own facemask.) - Discharge Summary/Plan Comment DC Time >30 min.: No - Patient Data Vitals - Most Recent: Last Vital Signs Temp 36.5 C 05/26/20 08:00 Pulse 60 05/26/20 08:00 Resp 18 05/26/20 08:00 BP 116/88 05/26/20 08:00 Pulse Ox 98 05/26/20 08:00 Weight - Most Recent: 80.739 kg I&O - Last 24 hours: Intake & Output 05/25/20 05/26/20 05/26/20 22:59 06:59 14:59 Intake Total 250 600 Output Total 0 Balance 250 600 Lab Results - Last 24 hrs: Laboratory Results - last 24 hr 05/26/20 05/26/20 Range/Units 05:10 05:10 WBC 7.06 (4.0-11.0) K/uL RBC 4.83 (4.50-5.90) M/uL Hgb 14.8 (13.0-17.0) g/dL Hct 44.9 (38.0-50.0) % MCV 93.0 (80.0-98.0) fL MCH 30.6 (27.0-32.0) pg MCHC 33.0 (31.0-37.0) g/dL RDW Std Deviation 46.7 (28.0-62.0) fl RDW Coeff of Juan 14 (11.0-15.0) % Plt Count 269 (150-400) K/uL MPV 9.40 (7.40-12.00) fL Neut % (Auto) 61.1 (48.0-80.0) % Lymph % (Auto) 28.5 (16.0-40.0) % Lane % (Auto) 5.9 (0.0-15.0) % Eos % (Auto) 4.4 (0.0-7.0) % Baso % (Auto) 0.1 (0.0-1.5) % Neut # (Auto) 4.3 (1.4-5.7) K/uL Lymph # (Auto) 2.0 (0.6-2.4) K/uL Lane # (Auto) 0.4 (0.0-0.8) K/uL Eos # (Auto) 0.3 (0.0-0.7) K/uL Baso # (Auto) 0.0 (0.0-0.1) K/uL Nucleated RBC % 0.0 /100WBC Nucleated RBCs # 0 K/uL Sodium 140 (136-148) mmol/L Potassium 4.0 (3.5-5.1) mmol/L Chloride 105 (98-107) mmol/L Carbon Dioxide 29.1 (21.0-32.0) mmol/L BUN 9 (7.0-18.0) mg/dL Creatinine 0.9 (0.8-1.3) mg/dL Est Cr Clr Drug Dosing 112.00 mL/min Estimated GFR (MDRD) > 60.0 ml/min Glucose 90 (74-106) mg/dL Calcium 8.3 L (8.5-10.1) mg/dL Total Bilirubin 0.5 (0.2-1.0) mg/dL AST 19 (15-37) IU/L ALT 31 (14-63) IU/L Alkaline Phosphatase 109 (46-116) U/L Total Protein 7.7 (6.4-8.2) g/dL Albumin 3.7 (3.4-5.0) g/dL Globulin 4.0 (2.6-4.0) g/dL Albumin/Globulin Ratio 0.9 (0.9-1.6) Med Orders - Current: Current Medications Acetaminophen (Tylenol) 650 mg PO Q4H PRN PRN Reason: Pain (Mild 1-3)/fever Last Admin: 05/25/20 21:32 Dose: 650 mg Documented by: Aspirin (Aspirin) 81 mg PO DAILY [facility] Last Admin: 05/26/20 08:11 Dose: 81 mg Documented by: Atorvastatin Calcium (Lipitor) 40 mg PO BEDTIME [facility] Last Admin: 05/25/20 21:32 Dose: 40 mg Documented by: Enoxaparin Sodium (Lovenox) 40 mg SUBCUT Q24H [facility] Ondansetron HCl (Zofran) 4 mg IVPUSH Q4H PRN PRN Reason: Nausea Ondansetron HCl (Zofran Odt) 4 mg PO Q4H PRN PRN Reason: nausea, able to take PO Sodium Chloride (Saline Flush) 10 ml FLUSH ASDIRECTED PRN PRN Reason: Keep Vein Open Sodium Chloride (Saline Flush) 2.5 ml FLUSH ASDIRECTED PRN PRN Reason: Keep Vein Open Sodium Chloride (Normal Saline) 10 ml IV ASDIRECTED PRN PRN Reason: IV Use Discontinued Medications Aspirin (Aspirin) 324 mg PO ONETIME ONE Stop: 05/25/20 10:38 Last Admin: 05/25/20 10:55 Dose: 324 mg Documented by: Gadobenate Dimeglumine (Multihance) 20 ml IVPUSH ONETIME STA Stop: 05/25/20 12:34 Last Admin: 05/25/20 12:34 Dose: 16 ml Documented by: Heparin Sodium (Porcine) (Heparin Sodium) 5,000 units SUBCUT Q8H ALY Last Admin: 05/26/20 05:24 Dose: 5,000 units Documented by: Sodium Chloride (Normal Saline) 1,000 mls @ 120 mls/hr IV STAT ONE Stop: 05/25/20 20:37 Last Admin: 05/25/20 12:33 Dose: 120 mls/hr Documented by: <Bao Carey - Last Filed: 05/27/20 11:22> Discharge Summary - Hospital Course Free Text/Narrative:: I have seen and evaluated the patient and agree with the residents note unless specified in my note - Referral to Home Health Primary Care Physician: PCP None - Patient Summary/Data Consults: Consultations 05/25/20 12:13 PT Evaluation and Treatment [CONS] Routine - Patient Data Vitals - Most Recent: Last Vital Signs Temp 36.6 C 05/26/20 11:58 Pulse 65 05/26/20 11:58 Resp 18 05/26/20 11:58 BP 116/79 05/26/20 11:58 Pulse Ox 98 05/26/20 12:14 Med Orders - Current: Current Medications Discontinued Medications Acetaminophen (Tylenol) 650 mg PO Q4H PRN PRN Reason: Pain (Mild 1-3)/fever Last Admin: 05/25/20 21:32 Dose: 650 mg Documented by: Aspirin (Aspirin) 324 mg PO ONETIME ONE Stop: 05/25/20 10:38 Last Admin: 05/25/20 10:55 Dose: 324 mg Documented by: Aspirin (Aspirin) 81 mg PO DAILY ALY Last Admin: 05/26/20 08:11 Dose: 81 mg Documented by: Atorvastatin Calcium (Lipitor) 40 mg PO BEDTIME [facility] Last Admin: 05/25/20 21:32 Dose: 40 mg Documented by: Enoxaparin Sodium (Lovenox) 40 mg SUBCUT Q24H [facility] Gadobenate Dimeglumine (Multihance) 20 ml IVPUSH ONETIME STA Stop: 05/25/20 12:34 Last Admin: 05/25/20 12:34 Dose: 16 ml Documented by: Heparin Sodium (Porcine) (Heparin Sodium) 5,000 units SUBCUT Q8H [facility] Last Admin: 05/26/20 05:24 Dose: 5,000 units Documented by: Sodium Chloride (Normal Saline) 1,000 mls @ 120 mls/hr IV STAT ONE Stop: 05/25/20 20:37 Last Admin: 05/25/20 12:33 Dose: 120 mls/hr Documented by: Ondansetron HCl (Zofran) 4 mg IVPUSH Q4H PRN PRN Reason: Nausea Ondansetron HCl (Zofran Odt) 4 mg PO Q4H PRN PRN Reason: nausea, able to take PO Sodium Chloride (Saline Flush) 10 ml FLUSH ASDIRECTED PRN PRN Reason: Keep Vein Open Sodium Chloride (Saline Flush) 2.5 ml FLUSH ASDIRECTED PRN PRN Reason: Keep Vein Open Sodium Chloride (Normal Saline) 10 ml IV ASDIRECTED PRN PRN Reason: IV Use
[2020-05-26 11:59] VITALS: BP 116/79; PULSE 65
[2020-05-26] MEDS ORDERED: Enoxaparin 40 MG/0.4 ML Syringe SUBCUT SCH (14:00)
== END 2020-05-26 13:05 | disposition home or self-care (01) ==
LOC: MW.ED 08:55 → MW.MS 11:33
PROVIDERS: ADMIT Internal Medicine; ATTEND Internal Medicine
DX: I63.9 Cerebral infarction, unspecified (principal); R29.700 NIHSS score 0; Z20.828 Contact with and (suspected) exposure to other viral communicable diseases; Z79.82 Long term (current) use of aspirin; Z79.899 Other long term (current) drug therapy
CPT/HCPCS: 36415; 70450; 70547; 70553; 71045; 80053; 80061; 82962; 83036; 84443; 84484; 85025; 85610; 85730; 87635; 93005; 93306; 96372; 97161; 99285; A9270; A9577; G0378; J1644; J7030; U0002

== ENCOUNTER 2021-05-24 11:34 | Emergency (ER) | payer BC ==
[2021-05-24] MEDS ORDERED: Sodium Chloride 0.9% 1,000 ML IV ONE (12:40)
[2021-05-24] MEDS ORDERED: Ondansetron 4 MG/2 ML SDV IVPUSH ONE (12:40)
[2021-05-24] MEDS ORDERED: diphenhydrAMINE 50 MG/ML SDV IVPUSH ONE (12:42)
[2021-05-24] MEDS ORDERED: Metoclopramide 10 MG/2 ML SDV IV ONE (12:42)
--- NOTE | 2021-05-24 13:09 | PCM.EKG ---
#1 Interpretation EKG Date: 05/24/21 Time: 13:01 Rhythm: NSR Rate (Beats/Min): 80 Julian: Normal P-Wave: Present QRS: Normal ST-T: Normal QT: Normal MD/PQ Interval: 151 EKG Interpretation Comments: no ischemic changes, KENYON pattern V2-3
--- NOTE | 2021-05-24 13:25 | CR ---
INDICATION: Dizziness. Extremity numbness. TECHNIQUE: Chest 1 views COMPARISON: 05/25/2020 FINDINGS: Cardiovascular and mediastinum: Heart size and vasculature are normal in caliber and appearance. Lungs and pleural spaces: Lungs are clear. No sign of infiltrate or mass. No sign of pleural effusion. No pneumothorax. Bones and soft tissues: No significant findings. IMPRESSION: No acute findings and no significant changes from the prior exam. Dictated by Uriel Peters MD @ 05/24/2021 1:25:[address] Uriel Peters @ May 24 2021 1:25PM
[2021-05-24 13:46] LABS: BLOOD UREA NITROGEN,BUN 9 mg/dL (7.0-18.0); CARBON DIOXIDE,CO2 23.7 mmol/L (21.0-32.0); CHLORIDE,CL 106 mmol/L (98-107); GLUCOSE RANDOM 97 mg/dL (74-106); LIPASE 137 U/L (73-393); POTASSIUM,K 4.2 mmol/L (3.5-5.1); SODIUM,NA 140 mmol/L (136-148)
[2021-05-24 14:07] LABS: CORONAVIRUS COVID-19 NAA NEGATIVE (NEGATIVE); INFLUENZA A NAA NEGATIVE (NEGATIVE); INFLUENZA B NAA NEGATIVE (NEGATIVE)
--- NOTE | 2021-05-24 14:17 | EDM.PDOC ---
ED HPI GENERAL MEDICAL PROBLEM - General Chief Complaint: Respiratory Problem Stated Complaint: HEADACHE Time Seen by Provider: 05/24/21 11:35 Source of Information: Reports: Patient History Limitations: Reports: No Limitations - History of Present Illness INITIAL COMMENTS - FREE TEXT/NARRATIVE: HISTORY AND PHYSICAL: History of present illness: Patient is a 40-year-old male, who is primarily speaking so Martti translation was used for HPI, HPI is limited due to this. Patient presents emergency room today with concern of headache over the past several days but has been having headaches similar to today off and on for the past 1 month. Patient denies any head injury or trauma and states that 3 times in the past month he has had associated left-sided weakness/numbness but has not had this in quite some time and unsure of the last time this has happened. Patient states earlier in the month he did have an episode where he had a hard time speaking associated with a headache but has not happened since. Patient states he had these exact symptoms in the past and was admitted to the hospital at that time and had multiple imaging and was told "nothing is wrong ". Patient states that he follows up with his primary care provider, Dr. Pang, who is treating patient for possible anxiety. Patient states that he does get random episodes of chest pain and feeling short of breath which has been ongoing for the past 1 year. Patient states that he also has chest pain and shortness of breath with ejaculation during intercourse but this has been ongoing for a year and a half and not new. Patient states his only complaint today is that he has a severe 10 out of 10 headache and states he has not taken anything for his symptoms. Patient denies any other associative symptoms. Patient denies fever, chills, chest pain, shortness of breath, or cough. Denies neck stiff ness, change in vision, syncope, or near syncope. Denies nausea, vomiting, abdominal pain, diarrhea, constipation, or dysuria. Has not noted any blood in urine or stool. Patient has been eating and drinking appropriately. Review of systems: As per history of present illness and below otherwise all systems reviewed and negative. Past medical history: As per history of present illness and as reviewed below otherwise noncontributory. Surgical history: As per history of present illness and as reviewed below otherwise noncontributory. Social history: See social history for further information Family history: As per history of present illness and as reviewed below otherwise noncontributory. Physical exam: General: Patient is alert, oriented, and in no acute distress. Patient sitting comfortably on exam table. Vitals stable and reviewed by me. HEENT: Atraumatic, normocephalic, pupils equal and reactive bilaterally, negative for conjunctival pallor or scleral icterus, mucous membranes moist, TMs normal bilaterally, throat clear, neck supple, nontender, trachea midline. No drooling or trismus noted. No meningeal signs. No hot potato voice noted. Lungs: Clear to auscultation, breath sounds equal bilaterally, chest nontender. Heart: S1S2, regular rate and rhythm without overt murmur Abdomen: Soft, nondistended, nontender. Negative for masses or hepatosplenomegaly. Negative for costovertebral tenderness. Pelvis: Stable nontender. Genitourinary: Deferred. Rectal: Deferred. Skin: Intact, warm, dry. No lesions or rashes noted. Extremities: Atraumatic, negative for cords or calf pain. Neurovascular unremarkable. Neuro: Awake, alert, oriented. Cranial nerves II through XII unremarkable. Cerebellum unremarkable. Motor and sensory unremarkable throughout. Exam nonfocal. Notes: Patient is a 40-year-old male presents emergency room today with concern of headache that he rates 10 out of 10 over the past several days. Upon arrival to the ED, patient is vitally stable and well-appearing on exam. Patient does note that over the course of the past 1 month he has had "random" episodes of left- sided numbness and difficulties with speaking. He states this is not the first time this has occurred as he last came to the emergency room and was admitted for this prior. On chart review from 05/25/2020, patient was seen in the emergency room here at that time for left-sided weakness and numbness with dizziness and difficulty speaking. At that time, patient was admitted to the hospital with concern of mild CVA and had MRI of his head and neck during his stay in the hospital which was unremarkable and showed no acute findings. Patient does note that he is not having any of the left-sided weakness/numbness or dizziness but he has had this intermittently over the course of the past 1 month similar to his hospital stay. Patient states his only complaint today is the headache. See Dr. Parks's dictation for specific EKG interpretation. However, normal sinus rhythm with a rate of 80 without STEMI CBC mild derangements unremarkable. D-dimer within normal limits. CMP mild derangements unremarkable. Troponin negative. TSH within normal limits. Covid and influenza negative. Urinalysis clear of infection. Head CT shows no CT evidence of an acute intracranial abnormality. CXR x-ray shows no acute findings or significant changes from prior exam. Upon reevaluation of patient, remains vitally stable and has improvement of his headache with therapeutics given today in the emergency room. Patient does clarify that he has been having these exact same symptoms for a 1 year has just had more frequent episodes of the headache over the past 1 month. Strict return precautions thoroughly discussed with patient. Discussed importance for follow- up with a primary care provider and neurologist. Voices understanding and is agreeable to plan of care. Denies any further questions or concerns at this time. Diagnostics: EKG, CBC, CMP, UA, CXR, Trop, Ddimer, Head CT Therapeutics: NS, Zofran, Benadryl, Toradol, Reglan Prescription: None Impression: Headache, improved Plan: 1. You can alternate ibuprofen and Tylenol as directed for pain and discomfort. 2. Follow-up with your primary care provider and the neurologist as discussed. The number has been provided above for you to call and establish an appointment time 3. Return to the ED as needed and as discussed. Definitive disposition and diagnosis as appropriate pending reevaluation and review of above. headache Pain Score (Numeric/FACES): 10 - Related Data Allergies Allergy/AdvReac Type Severity Reaction Status Date / Time No Known Allergies Allergy Verified 05/25/20 12:06 Home Meds: Home Meds Aspirin 81 mg PO DAILY 30 Days #30 tab.chew 05/26/20 [Rx] ClonazePAM [KlonoPIN] 0.5 mg PO BID PRN 05/24/21 [History] atorvaSTATin [Lipitor] 50 mg PO BEDTIME 05/24/21 [History] Past Medical History - Past Health History Medical/Surgical History: Denies Medical/Surgical History Cardiovascular History: Reports: None Respiratory History: Reports: None Gastrointestinal History: Reports: None Genitourinary History: Reports: None Musculoskeletal History: Reports: None Neurological History: Reports: None Psychiatric History: Reports: None Endocrine/Metabolic History: Reports: None Hematologic History: Reports: None Oncologic (Cancer) History: Reports: None - Infectious Disease History Infectious Disease History: Reports: Chicken Pox - Past Surgical History Head Surgeries/Procedures: Reports: None Social & Family History - Family History Family Medical History: No Pertinent Family History Cardiac: Reports: None Psychiatric: Reports: None - Tobacco Use Tobacco Use Status *Q: Unknown Ever Used Tobacco - Caffeine Use Caffeine Use: Reports: Coffee, Soda - Recreational Drug Use Recreational Drug Use: No ED ROS GENERAL - Review of Systems Review Of Systems: Comprehensive ROS is negative, except as noted in HPI. ED EXAM, GENERAL - Physical Exam Exam: See Below (see dictation) Course - Vital Signs Last Recorded V/S: Last Vital Signs Temp 98.2 F 05/24/21 13:14 Pulse 84 05/24/21 13:14 Resp 18 05/24/21 13:14 BP 117/72 05/24/21 13:14 Pulse Ox 95 05/24/21 13:14 - Orders/Labs/Meds Orders: Active Orders 24 hr Category Date Time Status Cardiac Monitoring [RC] . DIRECTED Care 05/24/21 12:41 Active Cardiac Monitoring [RC] . DIRECTED Care 05/24/21 12:46 Active EKG Documentation Completion [RC] STAT Care 05/24/21 12:41 Active Labs: Laboratory Tests 05/24/21 05/24/21 05/24/21 Range/Units 12:50 12:50 12:50 WBC 7.02 (4.0-11.0) K/uL RBC 4.78 (4.50-5.90) M/uL Hgb 15.0 (13.0-17.0) g/dL Hct 44.5 (38.0-50.0) % MCV 93.1 (80.0-98.0) fL MCH 31.4 (27.0-32.0) pg MCHC 33.7 (31.0-37.0) g/dL RDW Std Deviation 48.6 (28.0-62.0) fl RDW Coeff of Juan 14 (11.0-15.0) % Plt Count 239 (150-400) K/uL MPV 9.70 (7.40-12.00) fL Neut % (Auto) 80.1 H (48.0-80.0) % Lymph % (Auto) 14.4 L (16.0-40.0) % Gila % (Auto) 4.8 (0.0-15.0) % Eos % (Auto) 0.6 (0.0-7.0) % Baso % (Auto) 0.1 (0.0-1.5) % Neut # (Auto) 5.6 (1.4-5.7) K/uL Lymph # (Auto) 1.0 (0.6-2.4) K/uL Gila # (Auto) 0.3 (0.0-0.8) K/uL Eos # (Auto) 0.0 (0.0-0.7) K/uL Baso # (Auto) 0.0 (0.0-0.1) K/uL Nucleated RBC % 0.0 /100WBC Nucleated RBCs # 0 K/uL D-Dimer, Quantitative 0.31 (0.0-0.50) mg/L FEU Sodium 140 (136-148) mmol/L Potassium 4.2 (3.5-5.1) mmol/L Chloride 106 (98-107) mmol/L Carbon Dioxide 23.7 (21.0-32.0) mmol/L BUN 9 (7.0-18.0) mg/dL Creatinine 0.9 (0.8-1.3) mg/dL Est Cr Clr Drug Dosing 111.29 mL/min Estimated GFR (MDRD) > 60.0 ml/min Glucose 97 (74-106) mg/dL Calcium 8.4 L (8.5-10.1) mg/dL Total Bilirubin 0.2 (0.2-1.0) mg/dL AST 37 (15-37) IU/L ALT 49 (14-63) IU/L Alkaline Phosphatase 97 (46-116) U/L Troponin I < 0.050 (0.000-0.056) ng/mL Total Protein 7.8 (6.4-8.2) g/dL Albumin 3.9 (3.4-5.0) g/dL Globulin 3.9 (2.6-4.0) g/dL Albumin/Globulin Ratio 1.0 (0.9-1.6) Lipase 137 (73-393) U/L TSH, Ultra Sensitive 0.62 (0.36-3.74) uIU/mL Urine Color Urine Appearance Urine pH (5.0-8.0) Ur Specific [place] (1.001-1.035) Urine Protein (NEGATIVE) mg/dL Urine Glucose (UA) (NEGATIVE) mg/dL Urine Ketones (NEGATIVE) mg/dL Urine Occult Blood (NEGATIVE) Urine Nitrite (NEGATIVE) Urine Bilirubin (NEGATIVE) Urine Urobilinogen (<2.0) EU/dL Ur Leukocyte Esterase (NEGATIVE) Urine RBC (0-2/HPF) Urine WBC (0-5/HPF) Ur Epithelial Cells (NONE-FEW) Urine Bacteria (NEGATIVE) Influenza Type A RNA (NEGATIVE) Influenza Type B RNA (NEGATIVE) SARS-CoV-2 RNA (PATTI) (NEGATIVE) 05/24/21 05/24/21 Range/Units 13:23 14:27 WBC (4.0-11.0) K/uL RBC (4.50-5.90) M/uL Hgb (13.0-17.0) g/dL Hct (38.0-50.0) % MCV (80.0-98.0) fL MCH (27.0-32.0) pg MCHC (31.0-37.0) g/dL RDW Std Deviation (28.0-62.0) fl RDW Coeff of Juan (11.0-15.0) % Plt Count (150-400) K/uL MPV (7.40-12.00) fL Neut % (Auto) (48.0-80.0) % Lymph % (Auto) (16.0-40.0) % Gila % (Auto) (0.0-15.0) % Eos % (Auto) (0.0-7.0) % Baso % (Auto) (0.0-1.5) % Neut # (Auto) (1.4-5.7) K/uL Lymph # (Auto) (0.6-2.4) K/uL Gila # (Auto) (0.0-0.8) K/uL Eos # (Auto) (0.0-0.7) K/uL Baso # (Auto) (0.0-0.1) K/uL Nucleated RBC % /100WBC Nucleated RBCs # K/uL D-Dimer, Quantitative (0.0-0.50) mg/L FEU Sodium (136-148) mmol/L Potassium (3.5-5.1) mmol/L Chloride (98-107) mmol/L Carbon Dioxide (21.0-32.0) mmol/L BUN (7.0-18.0) mg/dL Creatinine (0.8-1.3) mg/dL Est Cr Clr Drug Dosing mL/min Estimated GFR (MDRD) ml/min Glucose (74-106) mg/dL Calcium (8.5-10.1) mg/dL Total Bilirubin (0.2-1.0) mg/dL AST (15-37) IU/L ALT (14-63) IU/L Alkaline Phosphatase (46-116) U/L Troponin I (0.000-0.056) ng/mL Total Protein (6.4-8.2) g/dL Albumin (3.4-5.0) g/dL Globulin (2.6-4.0) g/dL Albumin/Globulin Ratio (0.9-1.6) Lipase (73-393) U/L TSH, Ultra Sensitive (0.36-3.74) uIU/mL Urine Color YELLOW Urine Appearance CLEAR Urine pH 5.0 (5.0-8.0) Ur Specific [place] 1.020 (1.001-1.035) Urine Protein NEGATIVE (NEGATIVE) mg/dL Urine Glucose (UA) NEGATIVE (NEGATIVE) mg/dL Urine Ketones NEGATIVE (NEGATIVE) mg/dL Urine Occult Blood TRACE-INTACT H (NEGATIVE) Urine Nitrite NEGATIVE (NEGATIVE) Urine Bilirubin NEGATIVE (NEGATIVE) Urine Urobilinogen 0.2 (<2.0) EU/dL Ur Leukocyte Esterase NEGATIVE (NEGATIVE) Urine RBC 0-2 (0-2/HPF) Urine WBC 0-1 (0-5/HPF) Ur Epithelial Cells RARE (NONE-FEW) Urine Bacteria RARE (NEGATIVE) Influenza Type A RNA NEGATIVE (NEGATIVE) Influenza Type B RNA NEGATIVE (NEGATIVE) SARS-CoV-2 RNA (PATTI) NEGATIVE (NEGATIVE) Meds: Medications Discontinued Medications Generic Name Dose Route Start Last Admin Trade Name Freq PRN Reason Stop Dose Admin Diphenhydramine HCl 50 mg 05/24/21 12:42 05/24/21 12:54 Diphenhydramine 50 Mg/Ml Sdv IVPUSH 05/24/21 12:43 50 mg ONETIME ONE Administration Sodium Chloride 1,000 mls @ 999 mls/hr 08/02/21 12:40 05/24/21 12:54 Normal Saline IV 05/24/21 13:40 999 mls/hr BOLUS ONE Administration Ketorolac Tromethamine 30 mg 05/24/21 14:48 05/24/21 15:05 Ketorolac 30 Mg/Ml Sdv IVPUSH 05/24/21 14:49 30 mg ONETIME ONE Administration Metoclopramide HCl 10 mg 05/24/21 12:42 05/24/21 12:54 Metoclopramide 10 Mg/2 Ml Sdv IV 05/24/21 12:43 10 mg ONETIME ONE Administration Ondansetron HCl 4 mg 05/24/21 12:40 05/24/21 12:54 Ondansetron 4 Mg/2 Ml Sdv IVPUSH 05/24/21 12:41 4 mg ONETIME ONE Administration Departure - Departure Time of Disposition: 14:48 Disposition: Home, Self-Care 01 Clinical Impression: Headache Qualifiers: Headache type: unspecified Headache chronicity pattern: acute headache Intractability: not intractable Qualified Code(s): R51.9 - Headache, unspecified - Discharge Information Referrals: Dipak Pang MD [Primary Care Provider] - Forms: ED Department Discharge Additional Instructions: The following information is given to patients seen in the emergency department who are being discharged to home. This information is to outline your options for follow-up care. We provide all patients seen in our emergency department with a follow-up referral. The need for follow-up, as well as the timing and circumstances, are variable depending upon the specifics of your emergency department visit. If you don't have a primary care physician on staff, we will provide you with a referral. We always advise you to contact your personal physician following an emergency department visit to inform them of the circumstance of the visit and for follow-up with them and/or the need for any referrals to a consulting specialist. The emergency department will also refer you to a specialist when appropriate. This referral assures that you have the opportunity for follow-up care with a specialist. All of these measure are taken in an effort to provide you with optimal care, which includes your follow-up. Under all circumstances we always encourage you to contact your private physician who remains a resource for coordinating your care. When calling for follow-up care, please make the office aware that this follow-up is from your recent emergency room visit. If for any reason you are refused follow-up, please contact the [facility] Emergency Department at and asked to speak to the emergency department charge nurse. [facility] [address] [place] [address] [facility] [address] [place] [address] [facility] [address], [address] [place] [address] 1. You can alternate ibuprofen and Tylenol as directed for pain and discomfort. 2. Follow-up with your primary care provider and the neurologist as discussed. The number has been provided above for you to call and establish an appointment time 3. Return to the ED as needed and as discussed. Sepsis Event Note (ED) - Evaluation Sepsis Screening Result: No Definite Risk - Focused Exam Vital Signs: Vital Signs Temp Pulse Resp BP Pulse Ox 05/24/21 13:14 98.2 F 84 18 117/72 95 05/24/21 12:45 98.0 F 78 18 97/56 L 95 05/24/21 12:09 98.1 F 87 18 117/63 95 - My Orders Last 24 Hours: My Active Orders 05/24/21 12:41 Cardiac Monitoring [RC] . DIRECTED EKG Documentation Completion [RC] STAT 05/24/21 12:46 Cardiac Monitoring [RC] . DIRECTED - Assessment/Plan Last 24 Hours: My Active Orders 05/24/21 12:41 Cardiac Monitoring [RC] . DIRECTED EKG Documentation Completion [RC] STAT 05/24/21 12:46 Cardiac Monitoring [RC] . DIRECTED
--- NOTE | 2021-05-24 14:47 | CT ---
INDICATION: Headache. TECHNIQUE: Axial images. Sagittal and coronal reconstructions. COMPARISON: 05/25/2020. FINDINGS: There is no abnormal intracranial mass effect or midline shift. No acute intracranial hemorrhage. No areas of abnormal attenuation are seen with the brain. CSF spaces are age-appropriate. No acute osseous abnormality. Visualized paranasal sinuses and mastoids are clear. IMPRESSION: No CT evidence of an acute intracranial abnormality. Dictated by Rocco Matthews MD @ 05/24/2021 2:46:49 PM Please note that all CT scans at this facility use dose modulation, iterative reconstruction, and/or weight-based dosing when appropriate to reduce radiation dose to as low as reasonably achievable. Dictated by: Rocco Matthews MD @ 05/24/2021 14:46:59 (Electronically Signed)
[2021-05-24] MEDS ORDERED: Ketorolac 30 MG/ML SDV IVPUSH ONE (14:48)
[2021-05-24 19:16] VITALS: BP 104/68; PULSE 78
== END 2021-05-24 15:44 | disposition home or self-care (01) ==
LOC: MW.ED 11:34
DX: R51.9 Headache, unspecified (principal); Z79.82 Long term (current) use of aspirin; Z79.899 Other long term (current) drug therapy; Z20.822 Contact with and (suspected) exposure to COVID-19
CPT/HCPCS: 0240U; 36415; 70450; 71045; 80053; 81001; 83690; 84443; 84484; 85025; 85379; 93005; 96374; 96375; 99284; J1200; J1885; J2405; J2765; J7030

== ENCOUNTER 2021-10-03 07:51 | Emergency (ER) | payer BC ==
--- NOTE | 2021-10-03 08:10 | EDM.PDOC ---
ED HPI GENERAL MEDICAL PROBLEM - General Chief Complaint: General Stated Complaint: DIZZYNESS Time Seen by Provider: 10/03/21 08:01 - History of Present Illness INITIAL COMMENTS - FREE TEXT/NARRATIVE: 32-year-old male presents complaining of dizziness. Patient states he has had dizziness on and off for 8 years and it is gotten worse recently. It is associated with headache. Patient states he has had multiple CT scans for this. Patient describes the dizziness as a lightheadedness. There is no movement. Everything gets blurry when he stands up and this is the dizziness and lightheadedness that he feels. Patient states sometimes when he has this he has some chest discomfort but not during these episodes that prompted him to come in today. Patient states sometimes he has difficulty with speech and sometimes his body is frozen such that he cannot move. Patient states he had this yesterday. Moderate symptoms no exacerbating relieving factors. - Related Data Allergies Allergy/AdvReac Type Severity Reaction Status Date / Time No Known Allergies Allergy Verified 10/03/21 08:11 Past Medical History - Past Health History Medical/Surgical History: Denies Medical/Surgical History Cardiovascular History: Reports: None Respiratory History: Reports: None Gastrointestinal History: Reports: None Genitourinary History: Reports: None Musculoskeletal History: Reports: None Neurological History: Reports: None Psychiatric History: Reports: None Endocrine/Metabolic History: Reports: None Hematologic History: Reports: None Oncologic (Cancer) History: Reports: None - Infectious Disease History Infectious Disease History: Reports: Chicken Pox - Past Surgical History Head Surgeries/Procedures: Reports: None Social & Family History - Family History Family Medical History: No Pertinent Family History Cardiac: Reports: None Psychiatric: Reports: None - Caffeine Use Caffeine Use: Reports: Coffee, Soda ED ROS GENERAL - Review of Systems Review Of Systems: Comprehensive ROS is negative, except as noted in HPI. ED EXAM, GENERAL - Physical Exam Exam: See Below Free Text/Narrative:: CONSTITUTIONAL: well appearing in no acute distress SKIN: Warm, dry, and intact without rash HENT: Normocephalic, atraumatic, PULMONARY: clear to ausculation bilaterally. No rales, rhonchi, wheezing CARDIOVASCULAR: regular rate, No murmur, rubs, or gallops GASTROINTESTINAL: soft, nondistended, nontender NEUROLOGIC: normal speech, II-XII intact. light touch/5/5 power equal and symmetric in upper and lower extremities without deficit MUSCULOSKELETAL: no gross deformities, atraumatic PSYCHIATRIC: normal mood and affect #1 Interpretation Time: 08:16 EKG Interpretation Comments: 79, normal sinus rhythm, RSR prime with J-point elevation most prominently seen in V2 with normal inflection point. No reciprocal changes in similar morphology as compared to EKG from 05/24/2021 Course - Vital Signs Text/Narrative:: Differential diagnosis: CVA, intracranial hemorrhage, presyncope, dehydration, anemia, ACS, PE, other Patient presents with lightheadedness. Patient has had these symptoms multiple times in the past. Patient has had CTs and MRI that were negative. Patient has a nonfocal exam today. The work-up does not show any evidence of significant anemia, prerenal azotemia or overt evidence of ACS. Patient does not have chest pain at this time. Supportive treatment with return precautions and PCP follow- up advised. Patient does state that he has follow-up tomorrow with a primary care doctor Last Recorded V/S: Last Vital Signs Temp 36.9 C 10/03/21 08:58 Pulse 78 10/03/21 08:58 Resp 18 10/03/21 08:58 BP 112/74 10/03/21 08:58 Pulse Ox 96 10/03/21 08:58 - Orders/Labs/Meds Labs: Laboratory Tests 10/03/21 10/03/21 Range/Units 08:30 08:30 WBC 7.97 (4.0-11.0) K/uL RBC 5.43 (4.50-5.90) M/uL Hgb 17.7 H (13.0-17.0) g/dL Hct 50.6 H (38.0-50.0) % MCV 93.2 (80.0-98.0) fL MCH 32.6 H (27.0-32.0) pg MCHC 35.0 (31.0-37.0) g/dL RDW Std Deviation 47.8 (28.0-62.0) fl RDW Coeff of Juan 14 (11.0-15.0) % Plt Count 277 (150-400) K/uL MPV 9.50 (7.40-12.00) fL Neut % (Auto) 75.3 (48.0-80.0) % Lymph % (Auto) 17.6 (16.0-40.0) % [place] % (Auto) 6.5 (0.0-15.0) % Eos % (Auto) 0.6 (0.0-7.0) % Baso % (Auto) 0.0 (0.0-1.5) % Neut # (Auto) 6.0 H (1.4-5.7) K/uL Lymph # (Auto) 1.4 (0.6-2.4) K/uL [place] # (Auto) 0.5 (0.0-0.8) K/uL Eos # (Auto) 0.1 (0.0-0.7) K/uL Baso # (Auto) 0.0 (0.0-0.1) K/uL Nucleated RBC % 0.0 /100WBC Nucleated RBCs # 0 K/uL Sodium 139 (136-148) mmol/L Potassium 4.0 (3.5-5.1) mmol/L Chloride 100 (98-107) mmol/L Carbon Dioxide 28.5 (21.0-32.0) mmol/L BUN 10 (7.0-18.0) mg/dL Creatinine 0.8 (0.8-1.3) mg/dL Est Cr Clr Drug Dosing 121.13 mL/min Estimated GFR (MDRD) > 60.0 ml/min Glucose 113 H (74-106) mg/dL Calcium 8.9 (8.5-10.1) mg/dL Total Bilirubin 0.5 (0.2-1.0) mg/dL AST 31 (15-37) IU/L ALT 51 (14-63) IU/L Alkaline Phosphatase 102 (46-116) U/L Troponin I < 0.050 (0.000-0.056) ng/mL Total Protein 9.4 H (6.4-8.2) g/dL Albumin 4.6 (3.4-5.0) g/dL Globulin 4.8 H (2.6-4.0) g/dL Albumin/Globulin Ratio 1.0 (0.9-1.6) Departure - Departure Time of Disposition: 09:15 Disposition: Home, Self-Care 01 Condition: Good Clinical Impression: Near syncope - Discharge Information Instructions: Near-Syncope, [id number] Referrals: PCP,None [Primary Care Provider] - Forms: ED Department Discharge Additional Instructions: Return for chest pain, slurred speech, double vision arm/leg numbness/weakness, passing out, change or worsening condition. Follow-up with your primary care doctor as scheduled. The following information is given to patients seen in the emergency department who are being discharged to home. This information is to outline your options for follow-up care. We provide all patients seen in our emergency department with a follow-up referral. The need for follow-up, as well as the timing and circumstances, are variable depending upon the specifics of your emergency department visit. If you don't have a primary care physician on staff, we will provide you with a referral. We always advise you to contact your personal physician following an emergency department visit to inform them of the circumstance of the visit and for follow-up with them and/or the need for any referrals to a consulting specialist. The emergency department will also refer you to a specialist when appropriate. This referral assures that you have the opportunity for follow-up care with a specialist. All of these measure are taken in an effort to provide you with optimal care, which includes your follow-up. Primary care clinics in the area: [facility] [address] [place] [id number] [facility] [address] [place] [id number] Under all circumstances we always encourage you to contact your private physician who remains a resource for coordinating your care. When calling for follow-up care, please make the office aware that this follow-up is from your recent emergency room visit. If for any reason you are refused follow-up, please contact the [facility] Emergency Department at and asked to speak to the emergency department charge nurse. Sepsis Event Note (ED) - Focused Exam Vital Signs: Vital Signs Temp Pulse Resp BP Pulse Ox 10/03/21 08:58 36.9 C 78 18 112/74 96 10/03/21 08:12 36.5 C 98 18 122/84 97
[2021-10-03 09:01] LABS: BLOOD UREA NITROGEN,BUN 10 mg/dL (7.0-18.0); CARBON DIOXIDE,CO2 28.5 mmol/L (21.0-32.0); CHLORIDE,CL 100 mmol/L (98-107); GLUCOSE RANDOM 113 mg/dL (74-106); SODIUM,NA 139 mmol/L (136-148)
[2021-10-03 09:45] VITALS: BP 116/81; PULSE 98
== END 2021-10-03 09:43 | disposition home or self-care (01) ==
LOC: MW.ED 07:51
DX: R55 Syncope and collapse (principal); R42 Dizziness and giddiness
CPT/HCPCS: 80053; 84484; 85025; 93005; 99284-25

== ENCOUNTER 2022-05-14 15:17 | Emergency (ER) | payer BC ==
[2022-05-14] MEDS ORDERED: Prochlorperazine 10 MG in Sodium Chloride 0.9% 50 ML IV ONE (15:57)
[2022-05-14] MEDS ORDERED: Lactated Ringers 1,000 ML IV ONE (15:57)
[2022-05-14] MEDS ORDERED: Acetaminophen 325 MG Tab PO ONE (15:57)
[2022-05-14] MEDS ORDERED: Ketorolac 30 MG/ML SDV IVPUSH ONE (15:58)
[2022-05-14] MEDS ORDERED: Prochlorperazine 10 MG/2 ML SDV IVPUSH ONE (16:30)
[2022-05-14 16:44] LABS: BLOOD UREA NITROGEN,BUN 10 mg/dL (7.0-18.0); CARBON DIOXIDE,CO2 24.6 mmol/L (21.0-32.0); CHLORIDE,CL 103 mmol/L (98-107); ESTIMATED GFR 120 mL/min (>60); GLUCOSE RANDOM 87 mg/dL (74-106); POTASSIUM,K 3.7 mmol/L (3.5-5.1); SODIUM,NA 139 mmol/L (136-148)
[2022-05-14 19:09] VITALS: BP 109/70; PULSE 84
== END 2022-05-14 19:07 | disposition home or self-care (01) ==
LOC: MW.ED 15:17
DX: G43.909 Migraine, unspecified, not intractable, without status migrainosus (principal)
CPT/HCPCS: 36415; 71045; 80048; 83735; 84100; 84443; 84484; 85025; 93005; 96374; 96375; 99284; A9270; J0780; J1885; J7120; 93010

== ENCOUNTER 2022-05-21 03:44 | Emergency (ER) | payer BC, OTHER ==
[2022-05-21 05:04] VITALS: BP 126/76; PULSE 75
== END 2022-05-21 05:04 | disposition home or self-care (01) ==
LOC: MW.ED 03:44
DX: G44.209 Tension-type headache, unspecified, not intractable (principal); G47.00 Insomnia, unspecified
CPT/HCPCS: 99283

== ENCOUNTER 2023-06-11 16:02 | Emergency (ER) | payer OTHER ==
[2023-06-11] MEDS ORDERED: Sodium Chloride 0.9% 10 ML Syringe FLUSH PRN (16:31)
[2023-06-11] MEDS ORDERED: Sodium Chloride 0.9% 2.5 ML Syringe FLUSH PRN (16:31)
[2023-06-11] MEDS ORDERED: Sodium Chloride 0.9% 1,000 ML IV ONE (16:31)
[2023-06-11 16:54] LABS: BASOPHILS PERCENT AUTO 0.2 % (0.0-1.5); EOSINOPHILS ABSOLUTE AUTO 0.2 K/uL (0.0-0.7); EOSINOPHILS PERCENT AUTO 3.6 % (0.0-7.0); HEMATOCRIT 49.6 % (38.0-50.0); HEMOGLOBIN 16.5 g/dL (13.0-17.0); LYMPHOCYTES ABSOLUTE AUTO 1.5 K/uL (0.6-2.4); LYMPHOCYTES PERCENT AUTO 28.1 % (16.0-40.0); MEAN CORPUSCULAR HGB CONC 33.3 g/dL (31.0-37.0); MEAN CORPUSCULAR VOLUME 93.2 fL (80.0-98.0); MONOCYTES ABSOLUTE AUTO 0.4 K/uL (0.0-0.8); MONOCYTES PERCENT AUTO 6.7 % (0.0-15.0); NEUTROPHILS ABSOLUTE AUTO 3.2 K/uL (1.4-5.7); NEUTROPHILS PERCENT AUTO 61.4 % (48.0-80.0); NRBC ABSOLUTE 0 K/uL; PLATELET COUNT,PLT 291 K/uL (150-400); RED BLOOD CELL COUNT 5.32 M/uL (4.50-5.90); WHITE BLOOD CELL COUNT,WBC 5.26 K/uL (4.0-11.0)
[2023-06-11 17:17] LABS: A/G RATIO 0.9 (0.9-1.6); ALANINE AMINOTRANSFERASE,ALT 46 IU/L (14-63); ALBUMIN 3.9 g/dL (3.4-5.0); ALKALINE PHOSPHATASE 90 U/L (46-116); ASPARTATE AMNIOTRANSFERASE,AST 18 IU/L (15-37); BILIRUBIN TOTAL 0.2 mg/dL (0.2-1.0); BLOOD UREA NITROGEN,BUN 5 mg/dL (7.0-18.0); CALCIUM 8.5 mg/dL (8.5-10.1); CHLORIDE,CL 105 mmol/L (98-107); CREATINE KINASE,CK 121 U/L (26-308); CREATININE 0.7 mg/dL (0.8-1.3); EST CRCL DRUG DOSING (CG) 144.84 mL/min; ESTIMATED GFR 119 mL/min (>60); GLUCOSE RANDOM 107 mg/dL (74-106); MAGNESIUM 2.2 mg/dL (1.8-2.4); POTASSIUM,K 3.9 mmol/L (3.5-5.1); PROTEIN TOTAL,TP 8.4 g/dL (6.4-8.2); SODIUM,NA 143 mmol/L (136-148)
[2023-06-11 17:34] LABS: INR 0.98 (0.86-1.11)
[2023-06-11 17:37] LABS: D-DIMER QUANTITATIVE < 0.19 mg/L FEU (0.00-0.50)
[2023-06-11 18:42] VITALS: BP 122/73; PULSE 78
== END 2023-06-11 18:42 | disposition home or self-care (01) ==
LOC: MW.ED 16:02
DX: R55 Syncope and collapse (principal)
CPT/HCPCS: 36415; 70450; 80053; 82550; 83735; 84484; 85025; 85379; 85610; 93005; 96360; 99284; J3490; J7030; 93010; 99283

== ENCOUNTER 2023-06-20 09:49 | Emergency (ER) | payer SELFPAY ==
[2023-06-20 11:03] LABS: BASOPHILS PERCENT AUTO 0.2 % (0.0-1.5); EOSINOPHILS ABSOLUTE AUTO 0.2 K/uL (0.0-0.7); EOSINOPHILS PERCENT AUTO 3.6 % (0.0-7.0); HEMOGLOBIN 15.7 g/dL (13.0-17.0); LYMPHOCYTES ABSOLUTE AUTO 1.5 K/uL (0.6-2.4); LYMPHOCYTES PERCENT AUTO 24.4 % (16.0-40.0); MEAN CORPUSCULAR HEMOGLOBIN 31.2 pg (27.0-32.0); MEAN CORPUSCULAR HGB CONC 33.4 g/dL (31.0-37.0); MEAN CORPUSCULAR VOLUME 93.3 fL (80.0-98.0); MONOCYTES ABSOLUTE AUTO 0.4 K/uL (0.0-0.8); MONOCYTES PERCENT AUTO 5.9 % (0.0-15.0); NEUTROPHILS PERCENT AUTO 65.9 % (48.0-80.0); NRBC ABSOLUTE 0 K/uL; PLATELET COUNT,PLT 269 K/uL (150-400); RED BLOOD CELL COUNT 5.04 M/uL (4.50-5.90); WHITE BLOOD CELL COUNT,WBC 6.11 K/uL (4.0-11.0)
[2023-06-20] MEDS ORDERED: Ketorolac 30 MG/ML SDV IVPUSH ONE (11:08)
[2023-06-20] MEDS ORDERED: diphenhydrAMINE 50 MG/ML SDV IVPUSH ONE (11:08)
[2023-06-20] MEDS ORDERED: Ondansetron 4 MG/2 ML SDV IVPUSH ONE (11:08)
[2023-06-20] MEDS ORDERED: Sodium Chloride 0.9% 1,000 ML IV ONE (11:08)
[2023-06-20 11:38] LABS: A/G RATIO 0.9 (0.9-1.6); ALANINE AMINOTRANSFERASE,ALT 45 IU/L (14-63); ALBUMIN 3.9 g/dL (3.4-5.0); ALKALINE PHOSPHATASE 92 U/L (46-116); ASPARTATE AMNIOTRANSFERASE,AST 31 IU/L (15-37); BILIRUBIN TOTAL 0.5 mg/dL (0.2-1.0); BLOOD UREA NITROGEN,BUN 11 mg/dL (7.0-18.0); CALCIUM 8.9 mg/dL (8.5-10.1); CARBON DIOXIDE,CO2 30.4 mmol/L (21.0-32.0); CHLORIDE,CL 103 mmol/L (98-107); CREATININE 0.8 mg/dL (0.8-1.3); GLUCOSE RANDOM 104 mg/dL (74-106); PROTEIN TOTAL,TP 8.3 g/dL (6.4-8.2); SODIUM,NA 139 mmol/L (136-148)
[2023-06-20 11:40] LABS: ESTIMATED GFR 115 mL/min (>60)
[2023-06-20 12:52] VITALS: BP 116/66; PULSE 60
== END 2023-06-20 12:53 | disposition home or self-care (01) ==
LOC: MW.ED 09:49
DX: G43.909 Migraine, unspecified, not intractable, without status migrainosus (principal)
CPT/HCPCS: 36415; 80053; 84484; 85025; 96374; 96375; 99284; J1200; J1885; J2405; J7030; 93010

== ENCOUNTER 2024-05-11 10:15 | Emergency (ER) | payer OTHER ==
[2024-05-11] MEDS: Amoxicillin/Clavulanate K 875-125 MG Tab PO ONE (10:56)
[2024-05-11 15:04] VITALS: BP 109/74; PULSE 69
== END 2024-05-11 11:47 | disposition home or self-care (01) ==
LOC: MW.ED 10:15
DX: L01.00 Impetigo, unspecified (principal); F14.10 Cocaine abuse, uncomplicated; Z75.8 Other problems related to medical facilities and other health care
CPT/HCPCS: 99282; A9270

== ENCOUNTER 2024-09-06 08:38 | Emergency (ER) | payer SELFPAY ==
[2024-09-06] MEDS ORDERED: Lidocaine 2% 5 ML SDV INJECT ONE (08:57)
[2024-09-06 09:13] LABS: BASOPHILS ABSOLUTE AUTO 0.02 K/uL (0.00-0.20); BASOPHILS PERCENT AUTO 0.4 % (0.0-1.0); EOSINOPHILS PERCENT AUTO 1.8 % (0.0-6.0); HEMATOCRIT 47.5 % (42.0-52.0); HEMOGLOBIN 15.7 g/dL (14.0-18.0); IMMATURE GRAN ABSOLUTE AUTO 0.02 K/uL (0.00-0.05); IMMATURE GRAN PERCENT AUTO 0.4 % (0.0-0.4); LYMPHOCYTES PERCENT AUTO 26.8 % (24.0-44.0); MEAN CORPUSCULAR HEMOGLOBIN 30.5 pg (28.0-32.0); MEAN CORPUSCULAR HGB CONC 33.1 g/dL (32.0-36.0); MEAN CORPUSCULAR VOLUME 92.4 fL (83.0-99.0); MEAN PLATELET VOLUME 9.5 fL (9.4-12.4); MONOCYTES PERCENT AUTO 7.2 % (0.0-8.0); NEUTROPHILS ABSOLUTE AUTO 3.55 K/uL (1.80-7.70); NEUTROPHILS PERCENT AUTO 63.4 % (41.0-71.0); PLATELET COUNT,PLT 252 K/uL (150-400); RED BLOOD CELL COUNT 5.14 M/uL (4.52-5.90); WHITE BLOOD CELL COUNT,WBC 5.59 K/uL (3.9-11.3)
[2024-09-06] MEDS: Aspirin 81 MG Tab.Chew PO ONE (09:23)
[2024-09-06] MEDS: Sodium Chloride 0.9% 10 ML Syringe FLUSH PRN (09:25)
[2024-09-06] MEDS: Sodium Chloride 0.9% 2.5 ML Syringe FLUSH PRN (09:25)
[2024-09-06 09:26] LABS: INR 0.99 (0.86-1.11)
[2024-09-06 09:39] LABS: A/G RATIO 1.1 (0.9-1.6); ALANINE AMINOTRANSFERASE,ALT 57 IU/L (14-63); ALKALINE PHOSPHATASE 84 U/L (46-116); ASPARTATE AMNIOTRANSFERASE,AST 48 IU/L (15-37); BILIRUBIN TOTAL 0.5 mg/dL (0.2-1.0); BLOOD UREA NITROGEN,BUN 13 mg/dL (7.0-18.0); CALCIUM 8.8 mg/dL (8.5-10.1); CARBON DIOXIDE,CO2 27.3 mmol/L (21.0-32.0); CHLORIDE,CL 103 mmol/L (98-107); CREATININE 0.7 mg/dL (0.8-1.3); EST CRCL DRUG DOSING (CG) 138.88 mL/min; GLUCOSE RANDOM 97 mg/dL (74-106); LIPASE 49 U/L (16-77); POTASSIUM,K 4.5 mmol/L (3.5-5.1); PROTEIN TOTAL,TP 7.7 g/dL (6.4-8.2); SODIUM,NA 140 mmol/L (136-148)
[2024-09-06 09:42] LABS: ESTIMATED GFR 119 mL/min (>60)
[2024-09-06 10:05] LABS: APPEARANCE,URINE CLEAR; BILIRUBIN,URINE NEGATIVE (NEGATIVE); COLOR,URINE YELLOW; GLUCOSE,URINE NEGATIVE (NEGATIVE); KETONES,URINE TRACE mg/dL (NEGATIVE); LEUKOCYTE ESTERASE,URINE NEGATIVE (NEGATIVE); NITRITE,URINE NEGATIVE (NEGATIVE); OCCULT BLOOD,URINE NEGATIVE (NEGATIVE); PROTEIN,URINE NEGATIVE (NEGATIVE); UROBILINOGEN,URINE 0.2 EU/dL (<2.0)
[2024-09-06 10:14] LABS: BACTERIA,URINE RARE (NEGATIVE); EPITHELIAL CELLS,URINE RARE (NONE-FEW); MUCUS,URINE LIGHT (NONE-MOD); RBC,URINE NONE SEEN (0-2/HPF); WBC,URINE 0-1 (0-5/HPF)
[2024-09-06] MEDS: Iopamidol 755 MG/ML 500 ML Multipack Bottle IVPUSH STA (10:36)
[2024-09-06 13:09] VITALS: BP 123/80; PULSE 87
== END 2024-09-06 13:09 | disposition home or self-care (01) ==
LOC: MW.ED 08:38
DX: R07.81 Pleurodynia (principal); Z75.8 Other problems related to medical facilities and other health care
CPT/HCPCS: 36415; 71045; 71275; 80053; 81001; 83690; 84484; 85025; 85610; 93005; 99285; A9270; J3490; Q9967

== ENCOUNTER 2025-09-22 22:51 | Emergency (ER) | payer SELFPAY ==
[2025-09-22] MEDS ORDERED: Sodium Chloride 0.9% 2.5 ML Syringe FLUSH PRN (23:16)
[2025-09-22] MEDS ORDERED: Sodium Chloride 0.9% 10 ML Syringe FLUSH PRN (23:16)
[2025-09-22] MEDS: Prochlorperazine 10 MG/2 ML SDV IVPUSH ONE (23:32)
[2025-09-22] MEDS: diphenhydrAMINE 50 MG/ML SDV IVPUSH ONE (23:32)
[2025-09-22 23:37] LABS: BASOPHILS ABSOLUTE AUTO 0.01 K/uL (0.00-0.20); BASOPHILS PERCENT AUTO 0.1 % (0.0-1.0); EOSINOPHILS ABSOLUTE AUTO 0.07 K/uL (0.00-0.45); EOSINOPHILS PERCENT AUTO 0.9 % (0.0-6.0); IMMATURE GRAN ABSOLUTE AUTO 0.02 K/uL (0.00-0.05); IMMATURE GRAN PERCENT AUTO 0.2 % (0.0-0.4); LYMPHOCYTES ABSOLUTE AUTO 1.50 K/uL (1.00-4.80); LYMPHOCYTES PERCENT AUTO 18.6 % (24.0-44.0); MEAN PLATELET VOLUME 9.2 fL (9.4-12.4); MONOCYTES ABSOLUTE AUTO 0.56 K/uL (0.00-0.80); MONOCYTES PERCENT AUTO 6.9 % (0.0-8.0); NEUTROPHILS ABSOLUTE AUTO 5.92 K/uL (1.80-7.70); NEUTROPHILS PERCENT AUTO 73.3 % (41.0-71.0); NRBC ABSOLUTE 0.00 K/uL (0.00-0.02); NRBC PERCENT 0.0 /100WBC (0.0-0.2); PLATELET COUNT,PLT 256 K/uL (150-400); RED BLOOD CELL COUNT 5.04 M/uL (4.52-5.90); WHITE BLOOD CELL COUNT,WBC 8.08 K/uL (3.9-11.3)
[2025-09-22 23:50] LABS: INR 1.13 (0.86-1.11)
[2025-09-23] LABS: A/G RATIO 1.1 (0.9-1.6); ALANINE AMINOTRANSFERASE,ALT 54.0 IU/L (14-63); ASPARTATE AMNIOTRANSFERASE,AST 23.0 IU/L (15-37); BILIRUBIN TOTAL 0.4 mg/dL (0.2-1.0); BLOOD UREA NITROGEN,BUN 17.0 mg/dL (7.0-18.0); CARBON DIOXIDE,CO2 31.2 mmol/L (21.0-32.0); CHLORIDE,CL 102.0 mmol/L (98-107); CREATININE 1.1 mg/dL (0.8-1.3); EST CRCL DRUG DOSING (CG) 78.94 mL/min; GLUCOSE RANDOM 124.0 mg/dL (74-106); POTASSIUM,K 3.8 mmol/L (3.5-5.1); PROTEIN TOTAL,TP 7.6 g/dL (6.4-8.2); SODIUM,NA 140.0 mmol/L (136-148)
[2025-09-23 00:01] LABS: ESTIMATED GFR 86.0 mL/min (>60)
[2025-09-23 00:32] VITALS: BP 110/79
[2025-09-23] MEDS: Ketorolac 30 MG/ML SDV IVPUSH ONE (00:32)
[2025-09-23 00:34] VITALS: PULSE 94
== END 2025-09-23 00:53 | disposition home or self-care (01) ==
LOC: MW.ED 22:51
DX: G43.909 Migraine, unspecified, not intractable, without status migrainosus (principal); F14.90 Cocaine use, unspecified, uncomplicated
CPT/HCPCS: 36415; 70450; 80053; 80307; 83735; 85025; 85610; 87428; 96361; 96374; 96375; 99284; J0780; J1200; J1885; J7030; 99283